=== PATIENT | female | born 1985 | race Caucasian/White ===

== ENCOUNTER → 2017-03-29 | Outpatient (CLI) | payer OTHER, SELFPAY | PROVIDERS: Family Provider Family Medicine; Visit Provider Family Medicine | DX: F50.9 Eating disorder, unspecified (principal); Z71.3 Dietary counseling and surveillance | CPT/HCPCS: 97803; G0108 ==

== ENCOUNTER → 2017-04-17 16:44 | Outpatient (CLI) | payer OTHER, SELFPAY ==
--- NOTE | 2017-04-17 | XR_ITS ---
EXAM: XR lumbar spine min 4V HISTORY: Low back pain ITS.REASON: LBP ORDERING PHYSICIAN: Zeke Mays MD PATIENT AGE: 31 years COMPARISON: None FINDINGS: Normal alignment. No fracture or dislocation. No lytic or blastic change. No significant degenerative change. The disc spaces are preserved. IMPRESSION: Negative lumbar spine
== END ==
PROVIDERS: PCP Family Medicine; Visit Provider Family Medicine
DX: M54.5 Low back pain (principal)
CPT/HCPCS: 72110

== ENCOUNTER → 2017-04-26 15:53 | Outpatient (CLI) | payer OTHER, SELFPAY ==
--- NOTE | 2017-04-26 17:03 | DIET.NUTRFU ---
F/U note. Pt reports she has felt much better this past month. I am in a better place. Review of her food logs and she is averaging 3 meals plus one snack a day. weight 120 lbs. Weight gain of 6 lbs in the past month. Pt expresses some concern about amount of weight gain. reassured pt this is normal for malnutrition. Pt continues to have some leg cramps and easy bruising. Her period was one week late this month. She continues to take a mvi supplement as recommended. Pt encouraged to continue current po intake and to continue to follow meal plan. Provided information on research trials for eating disorders happening at [facility]. Will f/u in one month.
== END ==
PROVIDERS: Family Provider Family Medicine; PCP Family Medicine; Visit Provider Family Medicine
DX: F50.9 Eating disorder, unspecified (principal); Z71.3 Dietary counseling and surveillance

== ENCOUNTER → 2017-05-24 15:57 | Outpatient (CLI) | payer OTHER, SELFPAY | PROVIDERS: Family Provider Family Medicine; PCP Family Medicine; Visit Provider Family Medicine | DX: F50.9 Eating disorder, unspecified (principal); Z71.3 Dietary counseling and surveillance | CPT/HCPCS: 97803; G0108 ==

== ENCOUNTER → 2017-06-09 15:20 | Outpatient (CLI) | payer OTHER, SELFPAY ==
[2017-06-12 13:38] LABS: Vitamin D 25 Hydroxy 33.9 ng/mL (30.0-100.0)
== END ==
PROVIDERS: PCP Family Medicine; Visit Provider Family Medicine
DX: E55.9 Vitamin D deficiency, unspecified (principal)
CPT/HCPCS: 36415; 82652

== ENCOUNTER → 2017-06-21 15:54 | Outpatient (CLI) | payer OTHER, SELFPAY | PROVIDERS: Family Provider Family Medicine; PCP Family Medicine; Visit Provider Family Medicine | DX: F50.9 Eating disorder, unspecified (principal); Z71.3 Dietary counseling and surveillance | CPT/HCPCS: 97803; G0108 ==

== ENCOUNTER → 2017-07-26 15:54 | Outpatient (CLI) | payer OTHER, SELFPAY | PROVIDERS: Family Provider Family Medicine; PCP Family Medicine; Visit Provider Family Medicine | DX: F50.9 Eating disorder, unspecified (principal); Z71.3 Dietary counseling and surveillance | CPT/HCPCS: 97803; G0108 ==

== ENCOUNTER 2017-08-04 16:00 | Outpatient (RCR) | payer OTHER, SELFPAY ==
--- NOTE | 2017-06-16 11:18 | HMH.PTOPEV ---
Rehab Outpatient Evaluation Rehab OP Evaluation Start: 06/15/17 17:21 Freq: Status: Active Protocol: Document 06/15/17 17:42 ELZA (Rec: 06/15/17 18:31 ELZA [id number]) Electronically Signed By Baljinder Flowers, PT 06/15/17 17:42 Outpatient Therapy Subjective History Subjective History Ms. Vitale is a 31 year old female who presents to outpatient PT with chronic LB pain and LLE radicular symptoms down to her foot, but her pain was more severe post 5k run 2016. PMH include labral surgery L hip, bilateral bunion surgery and R knee surgery. Pt. currently taking lexapro and melatonin with a history of anxiety/ depression and a eating disorder. Pt. reported X-ray with no significant changes. Pt. will benefit from skilled outpatient PT for BLE/lumbar strengthening and stretching, modalities, and pain controlling interventions. Chief Complaint Pain Paresthesia Symptom Type Ache Sharp Burning Tingling Shooting Symptoms Relieved By Rest/Positioning Heat Ice OTC Meds Symptoms Aggravated By Prone Sitting Standing Physical Activity Twisting Walking Prior Functional Limitations None Current Functional Limitations Driving Standing Sitting Recreation Activity Walking Symptom Description Intermittent Level of pain today (0-10) 2 Pain scale - at its best (0-10) 2 Pain scale - at its worst (0-10) 5 Lumbopelvic Eval Posture Thoracic Spine Posture Standing Position Neutral Lumbar Spine Posture Standing Position Neutral Assistive device Assistive Devices None / NA Gait Observation General Gait Pattern Observation No Deviations/Normal Palapation tenderness left thoracic spinal
== END 2017-08-04 16:01 | disposition home or self-care (01) ==
LOC: PT 16:00
PROVIDERS: Family Provider Family Medicine; PCP Family Medicine; Visit Provider Family Medicine
DX: M54.5 Low back pain (principal)
CPT/HCPCS: 97010; 97012; 97014; 97033; 97035; 97110; 97140; 97164; G0283

== ENCOUNTER → 2017-08-23 15:55 | Outpatient (CLI) | payer OTHER, SELFPAY | PROVIDERS: Family Provider Family Medicine; PCP Family Medicine; Visit Provider Family Medicine | DX: F50.9 Eating disorder, unspecified (principal); Z71.3 Dietary counseling and surveillance | CPT/HCPCS: 97803; G0108 ==

== ENCOUNTER 2017-09-06 16:30 | Outpatient (RCR) | payer OTHER, SELFPAY | END 2017-09-06 16:31 | disposition home or self-care (01) | LOC: PT 16:30 | PROVIDERS: Visit Provider Family Medicine | DX: M53.82 Other specified dorsopathies, cervical region (principal); M62.838 Other muscle spasm | CPT/HCPCS: 97010; 97014; 97035; 97110; 97140; 97163; G0283 ==

== ENCOUNTER → 2017-09-27 14:49 | Outpatient (CLI) | payer OTHER, SELFPAY ==
--- NOTE | 2017-09-27 15:37 | DIET.NUTRFU ---
One month f/u. New weight 119 lbs, down 4.6 lbs since last visit. Patient states it has been a good month by my standards, probably not by your standards . Food log indicates she is consuming 2 meals a day plus one snack. Pt states she gets hungry but ignores the hunger cues. She states that she thinks about food about the same as everyone else . 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 Patient states the social activity helps with loneliness and isolation. Total weight loss has been 7 lbs in two months. Pt states that seeing her weight number on the scale (126 lbs) is what triggered her relapse. Plan: Reinforced to patient she is to eat 3 meals a day plus snacks as desired. Pt is to put scales away, to put full length mirror away. Discussed visualizing what weight gain will look like, how to accept weight gain as part of recovery. Supportive articles provided. Patient states that seeing the dietitian provides motivation to continue to fight the eating disorder. Patient states that she wants to go home and throw her scales away. F/u in one month. Patient contacts dietitian sooner as needed.
== END ==
PROVIDERS: Family Provider Family Medicine; PCP Family Medicine; Visit Provider Family Medicine
DX: F50.9 Eating disorder, unspecified (principal); Z71.3 Dietary counseling and surveillance
CPT/HCPCS: 97803; G0108

== ENCOUNTER → 2017-10-25 15:59 | Outpatient (CLI) | payer OTHER, SELFPAY | PROVIDERS: Family Provider Family Medicine; PCP Family Medicine; Visit Provider Family Medicine | DX: Z71.3 Dietary counseling and surveillance (principal); F50.9 Eating disorder, unspecified | CPT/HCPCS: 97803; G0108 ==

== ENCOUNTER → 2017-11-24 14:24 | Outpatient (CLI) | payer OTHER, SELFPAY | PROVIDERS: Family Provider Family Medicine; PCP Family Medicine; Visit Provider Family Medicine | DX: Z71.3 Dietary counseling and surveillance (principal); F50.9 Eating disorder, unspecified | CPT/HCPCS: 97803; G0108 ==

== ENCOUNTER → 2017-12-27 15:53 | Outpatient (CLI) | payer OTHER, SELFPAY | PROVIDERS: Family Provider Family Medicine; PCP Family Medicine; Visit Provider Family Medicine | DX: Z71.3 Dietary counseling and surveillance (principal) | CPT/HCPCS: 97803; G0108 ==

== ENCOUNTER → 2018-01-04 16:30 | Outpatient (CLI) | payer OTHER, SELFPAY | PROVIDERS: PCP Family Medicine; Visit Provider Family Medicine | DX: E55.9 Vitamin D deficiency, unspecified (principal) | CPT/HCPCS: 36415; 82652 ==

== ENCOUNTER → 2018-01-10 07:36 | Outpatient (CLI) | payer OTHER, SELFPAY ==
[2018-01-10 07:59] LABS: Basophils % 0.9 % (0.1-2.0); Eosinophils # 0.1 K/mm3 (0.0-0.4); Eosinophils % 1.6 % (0.1-12.0); Hematocrit 40.7 % (37.0-47.0); Hemoglobin 13.4 g/dL (12.2-16.2); Lymphocytes # 2.1 K/mm3 (0.7-4.5); Lymphocytes % 53.1 K/mm3 (10-50); Mean Corpuscular HGB Conc 32.9 g/dL (31.8-35.4); Mean Corpuscular Hemoglobin 29.3 pg (27.0-31.2); Mean Corpuscular Volume 89.1 fl (81-99); Mean Platelet Volume 7.8 fl (7.4-10.4); Monocytes # 0.3 K/mm3 (0.1-1.0); Monocytes % 7.3 % (1.7-9.3); Neutrophils # 1.5 K/mm3 (1.8-7.8); Neutrophils % 37.2 % (37.0-80.0); Platelet Count 197 K/mm3 (142-424); Red Blood Count 4.57 M/mm3 (4.20-5.40); Red Cell Distribution Width 13.3 % (11.5-17.5)
[2018-01-10 09:14] LABS: MANUAL DIFFERENTIAL MANUAL DIFFERENTIAL (MANUAL DIFF)
[2018-01-10 09:47] LABS: Alanine Aminotransferase 20 U/L (12-78); Albumin Level 3.9 gm/dL (3.4-5.0); Albumin/Globulin Ratio 1.1 (1.1-1.8); Alkaline Phosphatase 45 U/L (46-116); Anion Gap 11.5 mEq/L (5-15); Aspartate Amino Transferase 16 U/L (15-37); Bilirubin,Total 1.2 mg/dL (0.2-1.0); Blood Urea Nitrogen 16 mg/dL (7-18); Calcium 8.7 mg/dL (8.5-10.1); Carbon Dioxide 27 mmol/L (21.0-32.0); Chloride 104 mmol/L (98-107); Creatinine,Serum 0.85 mg/dL (0.55-1.02); Estimated Glomerular Filt Rate 77 ml/min (>60); GFR (African American) 93 ML/MIN (>60); Globulin 3.4 gm/dl (1.3-3.2); Glucose 94 mg/dL (74-106); Magnesium 1.9 mg/dL (1.4-2.2); Phosphorous 3.2 mg/dL (2.4-4.9); Potassium 3.5 mmoL/L (3.5-5.1); Sodium 139 mmol/L (136-145); Thyroid Stimulating Hormone 3.21 uIU/ml (0.358-3.740); Total Protein,Serum 7.3 gm/dL (6.4-8.2)
[2018-01-10 10:50] LABS: Eosinophils % 1 % (0-3); Lymphocytes % 43 % (10-50); Monocytes % 8 % (2-9); Neutrophils % 45 % (42-76); Total Cells Counted 100
[2018-01-10 10:51] LABS: Platelet Estimate Normal; RBC Morphology Normal
[2018-01-11 09:34] LABS: Vitamin B12 399 pg/mL (232-1245)
== END ==
PROVIDERS: PCP Family Medicine; Visit Provider Family Medicine
DX: R53.83 Other fatigue (principal)
CPT/HCPCS: 36415; 80053; 82607; 82746; 83735; 84100; 84443; 85007; 85025

== ENCOUNTER → 2018-01-31 15:54 | Outpatient (CLI) | payer OTHER, SELFPAY | PROVIDERS: PCP Family Medicine; Visit Provider Family Medicine | DX: Z71.3 Dietary counseling and surveillance (principal) | CPT/HCPCS: 97803 ==

== ENCOUNTER → 2018-02-28 15:52 | Outpatient (CLI) | payer OTHER, SELFPAY | PROVIDERS: PCP Family Medicine; Visit Provider Family Medicine | DX: Z71.3 Dietary counseling and surveillance (principal); F50.9 Eating disorder, unspecified | CPT/HCPCS: 97803 ==

== ENCOUNTER → 2018-03-28 15:55 | Outpatient (CLI) | payer OTHER, SELFPAY | PROVIDERS: PCP Family Medicine; Visit Provider Family Medicine | DX: Z71.3 Dietary counseling and surveillance (principal) | CPT/HCPCS: 97803 ==

== ENCOUNTER → 2018-06-06 16:02 | Outpatient (CLI) | payer OTHER, SELFPAY | PROVIDERS: PCP Family Medicine; Visit Provider Family Medicine | DX: Z71.3 Dietary counseling and surveillance (principal); F50.9 Eating disorder, unspecified | CPT/HCPCS: 97803 ==

== ENCOUNTER → 2018-08-10 15:36 | Outpatient (CLI) | payer OTHER, SELFPAY ==
[2018-08-10 18:16] LABS: Free T4 (Free Thyroxine) 0.84 ng/dl (0.76-1.46)
== END ==
PROVIDERS: Visit Provider Family Medicine
DX: R79.89 Other specified abnormal findings of blood chemistry (principal)
CPT/HCPCS: 36415; 84439

== ENCOUNTER → 2018-09-10 07:06 | Outpatient (CLI) | payer OTHER, SELFPAY ==
--- NOTE | 2018-09-10 07:11 | XR_ITS ---
XR ankle wt bearing LT min 3V HISTORY: ITS.REASON: left ankle pain ORDERING PHYSICIAN: Holley Clements DPM PATIENT AGE: 33 years Comparison: None FINDINGS: There is mild soft tissue swelling at the lateral malleoli region. No fracture, dislocation, lytic, or blastic change or significant degenerative change is evident. IMPRESSION: Soft tissue swelling laterally otherwise negative
== END ==
PROVIDERS: PCP Family Medicine; Visit Provider Podiatrist
DX: M25.572 Pain in left ankle and joints of left foot (principal)
CPT/HCPCS: 73610

== ENCOUNTER → 2018-09-20 14:20 | Outpatient (CLI) | payer OTHER, SELFPAY ==
--- NOTE | 2018-09-20 14:25 | CT_ITS ---
CT ankle LT wo con INDICATION: Pain and bruising and swelling following injury ITS.REASON: Pain, bruising, and swelling. ORDERING PHYSICIAN: Holley Clements DPM PATIENT AGE: 33 years COMPARISON: None TECHNIQUE: Axial images are obtained without contrast. Sagittal and coronal reformatted images are reviewed as well. All CT scans at the facility use one or more dose reduction, viz: automated exposure control, ma/kV adjustment per patient size (including targeted exams where dose is matched to indication, i.e. head), or iterative reconstruction technique. FINDINGS: The medial and lateral malleolus and talar dome have an unremarkable appearance. The the calcaneus, navicular, and cuneiforms and cuboid are unremarkable. There is a well-circumscribed lucency which is irregular in nature with corticated margins involving the posterior aspect of the talus ( an elongated lateral tubercle of the posterior process of the talus) . 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 The margins of the bony fragment are not smooth as one would expect for an os trigonum. There is soft tissue swelling about the ankle. The tibial fibular joint space does not appear widened. IMPRESSION: 1. 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 2. Diffuse soft tissue swelling about the ankle both medially and laterally and anteriorly
== END ==
PROVIDERS: PCP Family Medicine; Visit Provider Podiatrist
DX: S82.892A Other fracture of left lower leg, initial encounter for closed fracture (principal)
CPT/HCPCS: 73700

== ENCOUNTER → 2018-10-01 07:15 | Outpatient (CLI) | payer OTHER, SELFPAY ==
--- NOTE | 2018-10-01 07:18 | XR_ITS ---
XR ankle wt bearing LT min 3V HISTORY: ITS.REASON: fracture follow up ORDERING PHYSICIAN: Holley Clements DPM PATIENT AGE: 33 years Comparison: None FINDINGS: No fracture or dislocation. No lytic or blastic change. There is normal mineralization.. The joint spaces are well-preserved. No significant degenerative/arthritic changes. No erosive changes evident. IMPRESSION: Negative ankle, no acute finding
== END ==
PROVIDERS: PCP Family Medicine; Visit Provider Podiatrist
DX: S82.892A Other fracture of left lower leg, initial encounter for closed fracture (principal)
CPT/HCPCS: 73610

== ENCOUNTER → 2018-10-22 07:12 | Outpatient (CLI) | payer OTHER, SELFPAY ==
--- NOTE | 2018-10-22 07:15 | XR_ITS ---
XR ankle wt bearing LT min 3V HISTORY: Pain, follow-up fracture ITS.REASON: fracture follow up ORDERING PHYSICIAN: Holley Clements DPM PATIENT AGE: 33 years Comparison: 10/01/2018 FINDINGS: There does appear to be an old ununited abebe's fracture not well delineated by plain film better demonstrated on the CT scan of 09/20/2018. No acute fracture or dislocation. IMPRESSION: No change with no acute finding Suspect old ununited abebe's fracture at the posterior talus. Please correlate with clinical findings
== END ==
PROVIDERS: PCP Family Medicine; Visit Provider Podiatrist
DX: S82.892A Other fracture of left lower leg, initial encounter for closed fracture (principal)
CPT/HCPCS: 73610

== ENCOUNTER 2018-11-29 17:30 | Outpatient (RCR) | payer OTHER, SELFPAY ==
--- NOTE | 2018-10-24 17:31 | HMH.PTOPEV ---
PT Outpatient Evaluation Rehab PT Outpatient Evaluation Start: 10/24/18 17:17 Freq: Status: Active Protocol: Document 10/24/18 17:17 ELZA (Rec: 10/24/18 17:31 ELZA [id number]) Electronically Signed By Baljinder Flowers, PT 10/24/18 17:17 Outpatient Therapy Subjective History Subjective History Patient is a 33 year old female presenting to outpatient PT with reports of L foot/ankle pain S/P L Shepherds fracture on 09/09/18 ( 6w 3d). Fracturer was non- displaced. Most recent diagnostics indicate good bone growth at fracture site. Pt ambulates into clinic with tall CAM walker and below the knee compression stocking. Pt reports MD cleared her to walk out of boot at home, but in boot at work. Initial injury occured while playing flag football. Pt initially had some severe swelling and ecchymosis. She has previously been treated by [facility] which has provided some significant relief of swelling /symptoms. Comorbidities include hx of lumbar and cervical spine pain, as well as L hip labral repair. Chief Complaint Pain,Stiff,Swelling,Weakness Symptom Type Ache,Sharp Symptoms Relieved By Rest/Positioning,OTC Meds Symptoms Aggravated By Standing,Physical Activity, Walking Prior Functional Limitations None Current Functional Limitations Lifting,Housework,Standing, Squatting,Recreation Activity, Walking,Stairs,Balance Symptom Description Intermittent Level of pain today (0-10) 0 Pain scale - at its best (0-10) 0 Pain scale - at its worst (0-10) 3 Ankle/Foot Eval Gait Observation General Gait Pattern Observation Decrease Weight Bear (L) Palpation Tenderness left Ankle/Foot Palpation Overall Comment 2/4 ATF TTP positive ROM right Ankle/Foot Dorsiflexion w/Knee Extended 10 Active Range Motion (degrees) Ankle/Foot Plantar Flexion Active Range 60 of Motion (degrees) Ankle/Foot Eversion Active Range of 25 Motion (degrees) Ankle/Foot Inversion Active Range of
== END 2018-11-29 17:35 | disposition home or self-care (01) ==
LOC: PT 17:30
PROVIDERS: Visit Provider Podiatrist
DX: S82.899A Other fracture of unspecified lower leg, initial encounter for closed fracture (principal)
CPT/HCPCS: 97010; 97014; 97016; 97033; 97110; 97112; 97140; 97163; G0283

== ENCOUNTER → 2018-12-13 07:17 | Outpatient (CLI) | payer OTHER, SELFPAY ==
--- NOTE | 2018-12-13 07:20 | XR_ITS ---
PROCEDURE: XR FOOT WT BEARING LT 3V CLINICAL INDICATION: foot pain COMPARISON: HANDL3 HAND-LT-3 VIEWS from 04/09/2015 from 09/10/[address] ankle LT wo con from 09/20/2018 FINDINGS: There is a bony defect involving the distal aspect of the 1st metatarsal medially suggesting prior bunionectomy. Please correlate with surgical history. No acute fracture or dislocation is evident. CT scan suggested an old ununited abebe's fracture of prominent posterior talar process. This is below limits of resolution on this image. IMPRESSION: Prior bunionectomy of the 1st metatarsal Dictated by: Aleksandar Vale MD 12/13/2018 11:41 Electronically signed by Aleksandar Vale MD in [place] 12/13/2018 11:41
== END ==
PROVIDERS: PCP Family Medicine; Visit Provider Podiatrist
DX: M79.672 Pain in left foot (principal)
CPT/HCPCS: 73630

== ENCOUNTER → 2019-02-26 17:50 | Outpatient (CLI) | payer OTHER, SELFPAY ==
--- NOTE | 2019-02-26 17:54 | XR_ITS ---
PROCEDURE: XR FOOT WT BEARING LT 3V CLINICAL INDICATION: pain Pain COMPARISON: XR FOOT WT BEARING LT 3V from 12/13/2018 FINDINGS: No acute fracture or dislocation. There is a well-circumscribed defect involving the distal and medial aspect of the 1st metatarsal and may represent a site of prior bunionectomy. Please correlate with patient's history. Study is otherwise unremarkable. Other findings:None. IMPRESSION: Suspect prior bunionectomy at the distal aspect of the 1st metatarsal. No change with no acute finding Dictated by: Aleksandar Vale MD 02/26/2019 18:57 Electronically signed by Aleksandar Vale MD in [place] 02/26/2019 18:57
--- NOTE | 2019-02-26 17:54 | XR_ITS ---
PROCEDURE: XR CALCANEUS LT MIN 2V CLINICAL INDICATION: pain COMPARISON: No exams were available for comparison FINDINGS: No fracture or dislocation. No lytic or blastic change. There is normal mineralization. The joint spaces are well-preserved. No significant degenerative/arthritic changes. No erosive changes evident. Other findings:Kager's fat pad is preserved. No obvious Lina deformity IMPRESSION: Negative left calcaneus Dictated by: Aleksandar Vale MD 02/26/2019 18:56 Electronically signed by Aleksandar Vale MD in [place] 02/26/2019 18:56
== END ==
PROVIDERS: PCP Family Medicine; Visit Provider Podiatrist
DX: M79.672 Pain in left foot (principal)
CPT/HCPCS: 73630; 73650

== ENCOUNTER → 2019-03-06 14:22 | Outpatient (CLI) | payer OTHER, SELFPAY ==
--- NOTE | 2019-03-06 14:24 | MR_ITS ---
PROCEDURE: MR ANKLE LT WO/W CON CLINICAL INDICATION: Peroneal Tendon Pain Posterior ankle pain, prior fracture, lateral ankle pain COMPARISON: ANKLTWO CT ankle LT wo con from 09/20/2018 TECHNIQUE: Routine multiplanar multi echo sequences are performed without and with gadolinium enhancement. FINDINGS: There is a prominent posterior talar process with some minor signal alteration at this region which could be due to an old healed fracture. No acute fracture is evident. Small amount of fluid is present posteriorly at the talocalcaneal in tibial talar region. The peroneal tendons have an unremarkable appearance. The tibiofibular ligaments are unremarkable. The anterior talofibular ligament is thin and with some increased T2 signal at this region consistent with sprain or partial tear of the ATFL. The PT FL is intact. The deltoid ligament has an unremarkable appearance. There prominence of the posterior talar process. This however projects slightly lateral but does not appear to impinge upon the peroneal tendon. Posterior talar process does abut the lateral aspect of the flexor hallucis longus with slight increased T2 signal at this region. The Achilles tendon has an unremarkable appearance. Posterior tibialis and flexor digitorum longus as well as the extensor tendons are unremarkable IMPRESSION: 1. Small ankle joint effusion. 2. Partial tear versus sprain of the ATFL. 3. Prominent posterior talar process with questionable old fracture without impingement upon the peroneal tendon. There is some signal alteration of the flexor hallucis longus at the talus which could be due to some mild tendinopathy/tendinosis. Dictated by: Aleksandar Vale MD 03/07/2019 08:52 Electronically signed by Aleksandar Vale MD in [place] 03/11/2019 15:15
== END ==
PROVIDERS: PCP Family Medicine; Visit Provider Podiatrist
DX: S92.102A Unspecified fracture of left talus, initial encounter for closed fracture (principal)
CPT/HCPCS: 73723; A9576

== ENCOUNTER → 2019-03-28 16:51 | Outpatient (CLI) | payer OTHER, SELFPAY ==
[2019-03-28 17:10] LABS: Basophils % 0.7 % (0.1-2.0); Eosinophils # 0.1 K/mm3 (0.0-0.4); Eosinophils % 1.8 % (0.1-12.0); Hematocrit 39.2 % (37.0-47.0); Hemoglobin 13.7 g/dL (12.2-16.2); Lymphocytes # 2.5 K/mm3 (0.7-4.5); Lymphocytes % 45.5 % (10-50); Mean Corpuscular HGB Conc 34.9 g/dL (31.8-35.4); Mean Corpuscular Hemoglobin 30.9 pg (27.0-31.2); Mean Corpuscular Volume 88.4 fl (81-99); Mean Platelet Volume 7.7 fl (7.4-10.4); Monocytes # 0.3 K/mm3 (0.1-1.0); Monocytes % 5.5 % (1.7-9.3); Neutrophils # 2.5 K/mm3 (1.8-7.8); Neutrophils % 46.5 % (37.0-80.0); Platelet Count 268 K/mm3 (142-424); Red Blood Count 4.43 M/mm3 (4.20-5.40); Red Cell Distribution Width 12.8 % (11.5-17.5); White Blood Count 5.5 K/mm3 (4.8-10.8)
--- NOTE | 2019-03-28 17:15 | ECG_ITS ---
APPROVED REPORT Exam: Resting ECG HR:59 bpm ECG Measurements Heart Rate 59 AXES AK 180 P 5 QRSd 80 QRS 89 QT 410 T 65 QTc 405 <Conclusion> Sinus bradycardia Septal infarct, age undetermined Abnormal ECG Electronically signed by : Gonsalo Anderson, 03/29/2019 07:22:24
[2019-03-28 18:32] LABS: HCG Qualitative, Serum Negative (Negative)
[2019-03-28 19:13] LABS: Alanine Aminotransferase 28 U/L (12-78); Albumin Level 3.9 gm/dL (3.4-5.0); Albumin/Globulin Ratio 1.2 (1.1-1.8); Alkaline Phosphatase 44 U/L (46-116); Anion Gap 14.6 mEq/L (5-15); Aspartate Amino Transferase 18 U/L (15-37); Bilirubin,Total 0.3 mg/dL (0.2-1.0); Blood Urea Nitrogen 16 mg/dL (7-18); Calcium 8.6 mg/dL (8.5-10.1); Carbon Dioxide 29 mmol/L (21.0-32.0); Chloride 100 mmol/L (98-107); Creatinine,Serum 0.85 mg/dL (0.55-1.02); Estimated Glomerular Filt Rate 76 ml/min (>60); GFR (African American) 92 ML/MIN (>60); Globulin 3.3 gm/dl (1.3-3.2); Glucose 89 mg/dL (74-106); Potassium 3.6 mmoL/L (3.5-5.1); Sodium 140 mmol/L (136-145); Total Protein,Serum 7.2 gm/dL (6.4-8.2)
== END ==
PROVIDERS: PCP Family Medicine; Visit Provider Podiatrist
DX: Z01.818 Encounter for other preprocedural examination (principal); M25.872 Other specified joint disorders, left ankle and foot
CPT/HCPCS: 36415; 80053; 82652; 84703; 85025; 93005

== ENCOUNTER 2019-06-21 14:00 | Outpatient (RCR) | payer OTHER, SELFPAY ==
--- NOTE | 2019-05-22 09:25 | HMH.PTOPEV ---
PT Outpatient Evaluation Rehab PT Outpatient Evaluation Start: 05/22/19 08:32 Freq: Status: Active Protocol: Document 05/22/19 08:32 OFELIA (Rec: 05/22/19 09:25 OFELIA [id number]) Electronically Signed By Ole Chandler, PT 05/22/19 08:32 Outpatient Therapy Subjective History Subjective History Pt presents s/p L ankle Blanchard's fracture fragment excision, peroneal tendon repairs, FHL tendon repair, synovectomy on 04/12/19. Pt reports initial injury/sprain/ fx occurred while playing [employer] football in 2019. Pt reports 'tightness, and some soreness' since sx., however, 'it doesn 't really hurt which is good'. PMH: L bunionectomy Chief Complaint Pain,Stiff,Swelling, Paresthesia,Weakness Symptom Type Ache,Dull,Numbness Symptoms Relieved By Rest/Positioning,Ice Symptoms Aggravated By Standing,Physical Activity, Walking Prior Functional Limitations Standing,Walking Current Functional Limitations Standing,Walking,Stairs Symptom Description Intermittent Level of pain today (0-10) 0 Pain scale - at its best (0-10) 0 Pain scale - at its worst (0-10) 2 Ankle/Foot Eval Gait Observation General Gait Pattern Observation Antalgic Gait,Decrease Weight Bear (L) Palpation Tenderness left Ankle/Foot Palpation Findings Tenderness Ankle/Foot Palpation Overall Comment 2/4-sx. incision, peroneus brevis mm belly, post. tib mm belly ROM Ankle/Foot Dorsiflexion w/Knee Extended 0 Active Range Motion (degrees) Ankle/Foot Dorsiflexion w/Knee Extended 0-5 Passive Range (degrees) Ankle/Foot Plantar Flexion Active Range 0-40 of Motion (degrees) Ankle/Foot Plantar Flexion Passive Range 0-45 of Motion (degrees) Ankle/Foot Eversion Active Range of 0-10 Motion (degrees) Ankle/Foot Eversion Passive Range of 0-15 Motion (degrees) Ankle/Foot Inversion Active Range of 0-10 Motion (degrees) Ankle/Foot Inversion Passive Range of 0-12 Motion (degrees) Ankle/Foot ROM Limitations Soft Tissue Tightness, Contracture Great Toe Metatarsophalangeal Extension 0-30 Passive Range Motion (degrees) Great Toe Metatarsophalangeal Passive 0-35 Flexion Range Motion (degrees) Great Toe ROM Limitations Soft Tissue Tightness MMT Ankle Dorsif
--- NOTE | 2019-06-21 14:31 | HMH.RHREAS ---
Rehab Reassessment Rehab OP Re-assessment Start: 06/21/19 13:34 Freq: Status: Active Protocol: Document 06/21/19 13:34 OFELIA (Rec: 06/21/19 14:31 [email or web address] [id number]) Electronically Signed By Ole Chandler, PT 06/21/19 13:34 Rehab Re-assessment Subjective Subjective Pt reports 4/10 L ankle pain on VAS, 'it's sore today, been running errands all day'. Pt reports L ankle feels ~24% better since I Eval Objective Objective Notes AROM: L ANKLE DF 0, PF 0-45, INV 0-10, EVR 0-23 MMT: L ANKLE DF 4+/5, PF 4+/5, INV 4+/5, EVR 4/5 FIG 8: 54.5CM L TTP: PERONEALS LEFT -05/14 Assessment Progress Assessment Slower Than Expected Assessment Notes PT W/IMPROVED STRENGTH, TTP, AND EDEMA Patient goals met STG'S 06/15 Goals Not Met STG'S 08/15, LTG'S 12/17 Plan Plan PT TO CONTINUE W/SKILLED P.T. TO MAKE FURTHER IMPROVEMENTS IN AROM, STRENGTH, AND TTP TO ALLOW FOR OPTIMAL FUNCTION Frequency of Therapy 2-3X/WKS Duration of therapy 6-8 WKS Time and Billing Re-Eval Time 15 Re-Eval Billing Units 1 PHYSICIAN CERTIFICATION: I certify the specified therapy services for [facility] are required, authorized, and reviewed every 30 days.
== END 2019-06-21 15:10 | disposition home or self-care (01) ==
LOC: PT 14:00
PROVIDERS: PCP Family Medicine; Visit Provider Podiatrist
DX: M25.872 Other specified joint disorders, left ankle and foot (principal); M77.52 Other enthesopathy of left foot and ankle; S86.312A Strain of muscle(s) and tendon(s) of peroneal muscle group at lower leg level, left leg, initial encounter; S92.132A Displaced fracture of posterior process of left talus, initial encounter for closed fracture
CPT/HCPCS: 97010; 97014; 97016; 97110; 97112; 97140; 97163; 97164; G0283

== ENCOUNTER → 2019-06-25 12:12 | Outpatient (CLI) | payer OTHER, SELFPAY ==
--- NOTE | 2019-06-25 12:16 | XR_ITS ---
PROCEDURE: XR ANKLE WT BEARING LT MIN 3V CLINICAL INDICATION: Post-op Pain following surgery COMPARISON: XR ANKLE LT 2V from 04/12/2019 XR ANKLE LT MIN 3V from 04/12/2019 XR FOOT WT BEARING LT 3V from 06/25/2019 FINDINGS: Status post osteotomy of prominent posterior talar process. The splint has been removed. There is good alignment. No bony erosive process evident. IMPRESSION: Status post osteotomy of prominent posterior talar process otherwise negative Dictated by: Aleksandar Vale MD 06/25/2019 12:44 Electronically signed by Aleksandar Vale MD in [place] 06/25/2019 12:44
--- NOTE | 2019-06-25 12:16 | XR_ITS ---
PROCEDURE: XR FOOT WT BEARING LT 3V CLINICAL INDICATION: postop pain COMPARISON: Postop pain FINDINGS: Postsurgical changes are present involving the distal aspect of the 1st metatarsal with apparent bunionectomy. There is good alignment. No fracture or dislocation. No bony erosive process. The joint spaces are well-preserved. No significant degenerative/arthritic changes. No erosive changes evident. Other findings:None. IMPRESSION: Postsurgical change with no acute finding Dictated by: Aleksandar Vale MD 06/25/2019 12:45 Electronically signed by Aleksandar Vale MD in [place] 06/25/2019 12:45
== END ==
PROVIDERS: PCP Family Medicine; Visit Provider Podiatrist
DX: Z98.890 Other specified postprocedural states (principal); S92.1 Fracture of talus
CPT/HCPCS: 73610; 73630

== ENCOUNTER → 2019-06-28 09:59 | Outpatient (CLI) | payer OTHER, SELFPAY ==
--- NOTE | 2019-06-28 09:59 | MR_ITS ---
PROCEDURE: MR ANKLE LT WO/W CON CLINICAL INDICATION: evaluate for Post. Tib Tendon Tear Medial ankle pain and instability, prior surgery, posterior tibial tendonitis COMPARISON: MR ANKLE LT WO/W CON from 03/06/2019 TECHNIQUE: Routine multiplanar multi echo sequences are performed without and with gadolinium enhancement. FINDINGS: No fracture or dislocation. There is thickening of the anterior tibiofibular ligament which may represent post surgical changes. Moderate amount of soft tissue edema with enhancement is present along the posterior aspect of the ankle joint centrally and laterally. There is a nondisplaced split tear of the peroneus longus tendon at the retro malleolar groove 2 cm proximal to the tip of the fibula. The peroneus longus and brevis tendons have an unremarkable appearance. Fibers of the deltoid ligament are sparse with increased T2 signal consistent with sprain versus partial tear. There may be tear of the posterior tibiotalar ligament. There has been prior osteotomy of the popping it posterior talar process. 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 There is a small ankle joint effusion anteriorly IMPRESSION: 1. Nondisplaced split tear of the peroneus longus tendon 2. Postsurgical changes from prior osteotomy of prominent posterior talar process with moderate amount of edema within the soft tissues posterior laterally. 3. Abnormal appearance of the deltoid ligament with increased T2 signal in sparsely of the fibers consistent with sprain/tear. The posterior tibiotalar ligament is not identified as before consistent with a tear Dictated by: Aleksandar Vale MD 07/01/2019 11:56 Electronically signed by Aleksandar Vale MD in [place] 07/01/2019 11:56
== END ==
PROVIDERS: PCP Family Medicine; Visit Provider Podiatrist
DX: M76.822 Posterior tibial tendinitis, left leg (principal)
CPT/HCPCS: 73723; A9576

== ENCOUNTER → 2019-07-23 14:51 | Outpatient (CLI) | payer OTHER, SELFPAY ==
[2019-07-23 15:59] LABS: Erythrocyte Sedimentation Rate 11 mm/hr (0-20)
[2019-07-23 16:39] LABS: Uric Acid 3.8 mg/dl (2.5-6.2)
[2019-07-23 16:45] LABS: C-Reactive Protein 0.7 mg/L (0-4)
[2019-07-23 17:12] LABS: Thyroid Stimulating Hormone 5.77 uIU/mL (0.465-4.68)
[2019-07-25 07:16] LABS: Folate 10.1 ng/mL (>3.0); RA Latex Turbid. <10.0 IU/mL (0.0-13.9); Vitamin B12 310 pg/mL (232-1245)
[2019-07-25 18:44] LABS: Antinuclear Antibodies, IFA Negative (.)
[2019-07-26 11:26] LABS: Anti-Cyclic Citrullinated Pept 8 units (0-19)
== END ==
PROVIDERS: Visit Provider Podiatrist
DX: M25.572 Pain in left ankle and joints of left foot (principal); Z98.890 Other specified postprocedural states
CPT/HCPCS: 36415; 82607; 82746; 84443; 84550; 85651; 86038; 86140; 86200; 86431

== ENCOUNTER → 2019-07-26 11:40 | Outpatient (CLI) | payer OTHER, SELFPAY ==
[2019-07-26 15:39] LABS: Free T4 (Free Thyroxine) 0.66 ng/dl (0.78-2.19)
[2019-07-27 09:15] LABS: Thyroid Peroxidase Antibodies 26 IU/mL (0-34)
[2019-07-29 12:47] LABS: Thyroglobulin Level 113.9 IU/mL (0.0-0.9)
[2019-07-30 06:57] LABS: Thyroid Stimulating Immunoglob <0.10 IU/L (0.00-0.55)
== END ==
PROVIDERS: Visit Provider Family Medicine
DX: E03.9 Hypothyroidism, unspecified (principal)
CPT/HCPCS: 36415; 84439; 84445; 86376; 86800

== ENCOUNTER 2019-09-13 10:00 | Outpatient (RCR) | payer OTHER, SELFPAY ==
--- NOTE | 2019-08-23 14:54 | HMH.PTOPEV ---
PT Outpatient Evaluation Rehab PT Outpatient Evaluation Start: 08/23/19 14:08 Freq: Status: Active Protocol: Document 08/23/19 14:09 OFELIA (Rec: 08/23/19 14:54 OFELIA [id number]) Electronically Signed By Ole Chandler, PT 08/23/19 14:09 Outpatient Therapy Subjective History Subjective History Pt reports h/o chronic L ankle /foot pain since initial injury (peroneal tendon tears, abebe's fx L) on 09/10/18, sx. on 04/12/19. Pt reports deltiod L lig injury ~30-45 days ago, 'is better', only currently reporting mild lateral aspect L foot pain, and L lateral STJ area pain which has improved since local injection on 08/20/19. Chief Complaint Pain,Stiff,Swelling Symptom Type Ache,Dull Symptoms Relieved By Rest/Positioning Symptoms Aggravated By Physical Activity Prior Functional Limitations Standing,Walking Current Functional Limitations Standing,Recreation Activity, Walking,Stairs Symptom Description Intermittent Level of pain today (0-10) 0 Pain scale - at its best (0-10) 0 Pain scale - at its worst (0-10) 5 Ankle/Foot Eval Gait Observation General Gait Pattern Observation No Deviations/Normal Assistive Device Ambulation Assistive Device None Palpation Tenderness left Ankle/Foot Palpation Overall Comment base of 5th met.head, lateral STJ area 1-2/4 ROM Ankle/Foot Dorsiflexion w/Knee Extended 0-10 Active Range Motion (degrees) Ankle/Foot Plantar Flexion Active Range 0-32 of Motion (degrees) Ankle/Foot Eversion Active Range of 0-20 Motion (degrees) Ankle/Foot Inversion Active Range of 0-15 Motion (degrees) Ankle/Foot ROM Limitations Soft Tissue Tightness MMT Ankle Dorsiflexion Strength Grade 5 Normal Ankle Plantarflexion Strength Grade 5 Normal Foot Eversion Strength Grade 5 Normal Foot Inversion Strength Grade 4 Good Special Tests Ankle Anterior Drawer Test Negative Left Ankle Eversion Test Negative Left Talar Tilt Test Negative Left Outpatient Therapy Assessment Impairments Problems/Impairmments Palpation Tenderness,Impaired Range of Motion,Impaired Strength,Impaired Gait Pattern ,Impaired Walking,Impaired Standing,Impaired Recreational Activities,Impaired Running,
== END 2019-09-13 10:05 | disposition home or self-care (01) ==
LOC: PT 10:00
PROVIDERS: PCP Family Medicine; Visit Provider Podiatrist
DX: M25.572 Pain in left ankle and joints of left foot (principal); M25.672 Stiffness of left ankle, not elsewhere classified; Z98.890 Other specified postprocedural states
CPT/HCPCS: 97010; 97014; 97016; 97033; 97110; 97163; G0283

== ENCOUNTER → 2019-09-27 15:10 | Outpatient (CLI) | payer OTHER, SELFPAY ==
[2019-09-27 16:35] LABS: Free T4 (Free Thyroxine) 1.07 ng/dl (0.78-2.19)
[2019-09-27 16:49] LABS: Thyroid Stimulating Hormone 1.52 uIU/mL (0.465-4.68)
== END ==
PROVIDERS: Visit Provider Family Medicine
DX: E03.9 Hypothyroidism, unspecified (principal)
CPT/HCPCS: 36415; 84439; 84443

== ENCOUNTER → 2019-10-01 12:27 | Outpatient (CLI) | payer OTHER, SELFPAY ==
--- NOTE | 2019-10-01 12:30 | XR_ITS ---
PROCEDURE: XR CERVICAL SPINE 5V CLINICAL INDICATION: neck pain COMPARISON: No exams were available for comparison FINDINGS: No fracture or dislocation. No lytic or blastic change. There is normal mineralization. The joint spaces are well-preserved. No significant degenerative/arthritic changes. No erosive changes evident. Other findings:None. IMPRESSION: No acute findings. Dictated by: Bernardo Fischer 10/01/2019 13:44 Electronically signed by Bernardo Fischer in [place] 10/01/2019 13:44
--- NOTE | 2019-10-01 12:30 | XR_ITS ---
PROCEDURE: XR THORACIC SPINE 2V CLINICAL INDICATION: neck pain COMPARISON: TSP THORACIC SPINE-3V SWIMMERS from 09/26/2013 FINDINGS: There is no acute fracture or dislocation. The joint spaces are intact. There is a remote fracture deformity of the left mid clavicle. IMPRESSION: Remote fracture deformity of the left midclavicle Dictated by: Bernardo Fischer 10/01/2019 13:45 Electronically signed by Bernardo Fischer in [place] 10/01/2019 13:45
== END ==
PROVIDERS: PCP Family Medicine; Visit Provider Orthopaedic Surgery
DX: M54.2 Cervicalgia (principal); M62.838 Other muscle spasm
CPT/HCPCS: 72050; 72070

== ENCOUNTER → 2019-11-19 07:58 | Outpatient (POV) | payer OTHER, SELFPAY | PROVIDERS: PCP Family Medicine; Visit Provider Dermatology | DX: Z00.00 Encounter for general adult medical examination without abnormal findings (principal) ==

== ENCOUNTER → 2019-12-04 14:18 | Outpatient (CLI) | payer OTHER, SELFPAY ==
--- NOTE | 2019-12-04 14:19 | MR_ITS ---
PROCEDURE: MR ANKLE LT WO/W CON CLINICAL INDICATION: chronic left ankle pain S/p fx of lt ankle with surgery Apr 2019. Pt reinjured left ankle June 2019 and continues to have pain. COMPARISON: MR MR ANKLE LT WO/W CON from 03/06/2019 TECHNIQUE: Routine multiplanar multi echo sequences are performed without gadolinium enhancement. FINDINGS: There is normal alignment. No bone marrow edema is evident. There is some increased T2 signal posterior to the posterior aspect of the talus which may be postsurgical changes. There is some heterogeneous signal intensity along the posterior aspect of the peroneal tendons at the retro malleolar groove which could be due to postsurgical changes. No evidence peroneal tendon tear. Tendinopathy/tendinosis would be included in the differential diagnosis. No evidence of posterior tibial tendon tear. The flexor digitorum longus and flexor hallucis longus tendons are unremarkable.. There is sparsely of the fibers of the deltoid ligament with slight increase in T2 signal suggesting sprain or partial tear. There are some fibers which are intact. There is also mild thickening of the ATFL which could be due to sprain or partial tear. This thickening has slightly improved. There is a small amount of fluid in the tibiofibular joint distally and along the anterior lateral aspect of the talus. The Achilles tendon an unremarkable appearance. IMPRESSION: 1. Suspect postsurgical changes at the peroneal tendon region and posterior to the talus. 2. Sparsely of the deltoid ligament fibers with some increase in signal which may be due to sprain or partial tear. 3. Small ankle joint effusion. 4. Suspect chronic partial tear or sprain of the ATFL Dictated by: Aleksandar Vale MD 12/05/2019 10:55 Aleksandar Vale MD in [place] 12/05/2019 10:55
== END ==
PROVIDERS: PCP Family Medicine; Visit Provider Podiatrist
DX: M25.572 Pain in left ankle and joints of left foot (principal); M76.822 Posterior tibial tendinitis, left leg; M25.872 Other specified joint disorders, left ankle and foot; Z98.890 Other specified postprocedural states
CPT/HCPCS: 73723; A9576

== ENCOUNTER → 2019-12-07 11:30 | Outpatient (CLI) | payer OTHER, SELFPAY ==
[2019-12-07 12:10] LABS: Basophils % 0.8 % (0.1-2.0); Eosinophils # 0.1 K/mm3 (0.0-0.4); Eosinophils % 2.6 % (0.1-12.0); Hematocrit 41.5 % (37.0-47.0); Hemoglobin 14.8 g/dL (12.2-16.2); Lymphocytes # 1.8 K/mm3 (0.7-4.5); Lymphocytes % 42.7 % (10-50); Mean Corpuscular HGB Conc 35.6 g/dL (31.8-35.4); Mean Corpuscular Hemoglobin 31.4 pg (27.0-31.2); Mean Corpuscular Volume 88.3 fl (81-99); Mean Platelet Volume 7.5 fl (7.4-10.4); Monocytes # 0.3 K/mm3 (0.1-1.0); Monocytes % 7.7 % (1.7-9.3); Neutrophils # 1.9 K/mm3 (1.8-7.8); Neutrophils % 46.2 % (37.0-80.0); Platelet Count 242 K/mm3 (142-424); Red Blood Count 4.71 M/mm3 (4.20-5.40); Red Cell Distribution Width 12.9 % (11.5-17.5); White Blood Count 4.1 K/mm3 (4.8-10.8)
[2019-12-07 13:04] LABS: Free T4 (Free Thyroxine) 1.18 ng/dl (0.78-2.19)
[2019-12-07 13:05] LABS: 25-OH Vitamin D, Total 41.5 ng/mL (30-100)
[2019-12-07 13:16] LABS: Ferritin 29.7 ng/ml (6.24-137)
== END ==
PROVIDERS: Visit Provider Physician Assistant
DX: E03.8 Other specified hypothyroidism (principal); E06.3 Autoimmune thyroiditis; R53.82 Chronic fatigue, unspecified; L65.9 Nonscarring hair loss, unspecified
CPT/HCPCS: 36415; 82306; 82728; 84439; 84443; 85025

== ENCOUNTER → 2020-01-15 07:32 | Outpatient (CLI) | payer OTHER, SELFPAY ==
--- NOTE | 2020-01-15 07:47 | ECG_ITS ---
APPROVED REPORT Exam: Resting ECG HR:79 bpm ECG Measurements Heart Rate 79 AXES WA 166 P 73 QRSd 76 QRS 87 QT 366 T 47 QTc 419 Conclusion Normal sinus rhythm Left atrial abnormality Borderline ECG Electronically signed by : Gonsalo Anderson, 01/17/2020 13:54:26
[2020-01-15 08:05] LABS: Basophils % 0.8 % (0.1-2.0); Eosinophils # 0.1 K/mm3 (0.0-0.4); Eosinophils % 2.4 % (0.1-12.0); Hematocrit 44.6 % (37.0-47.0); Hemoglobin 14.6 g/dL (12.2-16.2); Lymphocytes # 1.7 K/mm3 (0.7-4.5); Lymphocytes % 38.8 % (10-50); Mean Corpuscular HGB Conc 32.7 g/dL (31.8-35.4); Mean Corpuscular Hemoglobin 30.1 pg (27.0-31.2); Mean Corpuscular Volume 91.8 fl (81-99); Mean Platelet Volume 7.3 fl (7.4-10.4); Monocytes # 0.3 K/mm3 (0.1-1.0); Neutrophils # 2.3 K/mm3 (1.8-7.8); Neutrophils % 51.9 % (37.0-80.0); Platelet Count 227 K/mm3 (142-424); Red Blood Count 4.86 M/mm3 (4.20-5.40); Red Cell Distribution Width 12.5 % (11.5-17.5); White Blood Count 4.4 K/mm3 (4.8-10.8)
[2020-01-15 09:29] LABS: Chloride 104 mmol/L (98-107); Sodium 138 mmol/L (136-145)
[2020-01-15 09:30] LABS: Potassium 3.8 mmoL/L (3.5-5.1)
[2020-01-15 09:32] LABS: Alanine Aminotransferase 22 U/L (12-78); Albumin Level 4.2 g/dl (3.5-5.0); Albumin/Globulin Ratio 1.4 (1.1-1.8); Alkaline Phosphatase 38 U/L (38-126); Anion Gap 11.8 mEq/L (5-15); Aspartate Amino Transferase 31 U/L (14-36); Bilirubin,Total 0.6 mg/dl (0.2-1.3); Blood Urea Nitrogen 21 mg/dl (7-17); Carbon Dioxide 26 mmol/L (22.0-30.0); Estimated Glomerular Filt Rate 81 ml/min (>60); GFR (African American) 98 ML/MIN (>60); Total Protein,Serum 7.2 g/dl (6.3-8.2)
[2020-01-15 09:33] LABS: Calcium 9.6 mg/dl (8.4-10.2); Glucose 101 mg/dl (74-100)
[2020-01-15 10:29] LABS: HCG Qualitative, Serum Negative (Negative)
== END ==
PROVIDERS: PCP Family Medicine; Visit Provider Podiatrist
DX: Z01.818 Encounter for other preprocedural examination (principal); M25.372 Other instability, left ankle
CPT/HCPCS: 36415; 80053; 84703; 85025; 93005

== ENCOUNTER → 2020-02-05 07:35 | Outpatient (CLI) | payer OTHER, SELFPAY ==
[2020-02-05 09:10] LABS: HCG Qualitative, Serum Negative (Negative)
[2020-02-05 11:18] LABS: Coronavirus 19 IgG Antibody Negative (Negative); Coronavirus 19 IgM Antibody Negative (Negative)
== END ==
PROVIDERS: Visit Provider Podiatrist
DX: Z01.818 Encounter for other preprocedural examination (principal); M25.372 Other instability, left ankle
CPT/HCPCS: 36415; 84703; 86328

== ENCOUNTER 2020-02-07 06:04 | Day surgery (SDC) | payer OTHER, SELFPAY ==
[2020-02-04 12:51] VITALS: BMI 22.5
[2020-02-07] VITALS (20 sets, daily range): BP systolic 105–133; BP diastolic 60–79; PULSE 69–94; RESP 12–20; TEMP 36.4–43; O2SAT 92–97
--- NOTE | 2020-02-07 06:45 | P.PN_ITS ---
[facility] Anesthesia Checklist - Patient Identification Patient Identification: Arm Band, Verbal (Name & ) - Structural Data Admitted From: Home Planned Operative Procedure/s: Left ankle arthroscopy, arthrotomy, gastrocnemius recession Consent for Planned Operative Procedure(s) Verified: Yes Verified Documents: Surgical Consent, History and Physical - NPO Status Verified Time NPO: 22:00 - Chart Verification Results Verified: CBC, BMP, ECG, HCG - Additional verifications Patient : No Anesthesia Reactions: No Hx Blood Transfusions: No Blood Transfusion Reaction: No - Airway Assessment C-Spine Mobility Assessed: Yes (MP 1, TMD 3, full neck ROM) TMJ Mobility Assessed: Yes Dentition: Good Dentition - Neurological Assessment Level of Consciousness: Awake, Alert, Appropriate, Follows Commands Hx Seizures: No Numbness or tingling in extremities: No - Anesthesia Plan Anesthesia Risk discussed: Yes Anesthesia Plan: Verified ASA Class: II Anesthesia Type: General w/block [facility] History I have reviewed the patient's past medical history: Yes Medical History: Reports:: Anxiety, Asthma, Depression Denies:: Cancer, Diabetes Mellitus Type 1, Diabetes Mellitus Type 2, Internal Pacemaker, MRSA, Seizures *Have you ever received a pneumonia vaccine?: No *Have you received a flu vaccine this season?: Yes Other Medical History: Denies: Blood Transfusion Reaction Anesthesia experience/problems:: None Laterality Cases: Left: Arthroscopy Hip, Right: Arthroscopy Knee Other Surgeries: Yes: Other. No: Pacemaker Amputation: No Fractures: Yes - *Social History Last grade of school completed: Advanced degree Smoking Status: Never smoker Alcohol Intake: current Alcohol Intake Frequency:: holidays/special occasions only Substance Use Type: denies use *Occupational Status:: employed Housing: house Household Members: spouse *Travel in the last 8 weeks: Inside the [place] - Psychiatric History Pschychiatric History:: Reports:: Anxiety, Depression Family Hx:: Diabetes, Cancer, Hyperlipidemia, Hypertension
--- NOTE | 2020-02-07 07:12 | HMH.OPNOTE ---
Date of procedure: 02/07/20 Pre-op Diagnosis:: 1. Left deltoid ligament tear 2. Left ATFL sprain 3. Left ankle instability 4. Left ankle impingement 5. Left posterior tibial tendonitis 6. Left gastrocnemius equinus Post-op Diagnosis:: Same Procedure performed:: 1. Left ankle arthroscopy 2. Left direct open repair deltoid ligament 3. Left posterior tibial tendon debridement and repair 4. Left modified Brostr?m lateral ankle stabilization 5. Left gastrocnemius recession 6. Left ankle synovectomy 7. Left application of graft 8. Left application of posterior splint Surgeon:: Holley Clements DPM DIAL PAINTER:: Gonsalo Barakat Anesthesia: GETA, regional (left pop, saph nerve block) Estimated blood loss (mL): 30 Clinical Note:: Patient is 34F who had peroneal tendon, FHL tendon repair and excision of fracture fragment on 04/12/19. During postoperative physical therapy course patient sustained a deltoid ligament injury. She was treated with conservative care. Subsequent MRI showed deltoid ligament tear and ATFL sprain. MRI reviewed and discussed with the patient. Conservative treatment discussed but not recommended. Her left ankle surgery was 04/12/2019. At this point she has failed conservative care including: Modification of activity, modification of shoe gear, inserts, ice, elevation, stretching, formal physical therapy, immobilization in a splint/boot, stability ankle brace, topical/oral steroids, NSAIDs. She was also referred and seen by her PCP and endocrinology for multiple joint pain which may be contributing to the left ankle pain and impingement. Patient continues to have medial foot and ankle pain which is limiting her daily activity as well as the ability to exercise. We discussed surgery. All risks and benefits were discussed including but not limited to: damage to blood vessels and nerves, bleeding, infection, wound complications, delayed, mal or non-union of bone, post-traumatic arthritis, scar, residual instability, need for further surgery, need for removal of implant, prolonged swelling of the extremity, prolonged pain, CRPS/RSD, DVT, and anesthetic complications. No guarantees were given. All questions fully answered. The patient verbalized understanding and agreed to proceed with surgery. Pre op labs and testing ordered: hcg, CBC, BMP, EKG, covid. Rx for [place] 7.5/325 #30, Zofran, Motrin. Medical clearance per PCP, Dr. Mays Operative findings:: Synovitis and soft tissue in the left ankle joint. The posterior tibial tendon has synovitis with a small amount of thickening about 2 cm from the insertion on the navicular. The area of thickening was not a true rupture or full-thickness tear. Area measured ~1.5cm long. Deep deltoid ligament intact medially. The superficial deltoid was attenuated on the most lateral aspect and torn medially. ATFL intact but attenuated with a small tear. Operative note:: On this date and time patient was deemed an appropriate surgical candidate. Pre-op regional popliteal and saphenous nerve block performed by anesthesia. With informed consent signed, the patient was taken to the operating theater. The patient was positioned supine. General anesthesia was induced. Tourniquet was applied to the left thigh @250mmHg. The left lower extremity was prepped and draped in normal sterile fashion. Left gastrocnemius recession: Attention was directed to the posterior leg medially a linear incision was mapped out. Layer dissection carried down to the peritenon overlying the gastrocnemius muscle, with care taken to maintain surgical hemostasis and retract neurovascular structures. The peritenon was transected and preserved for later closure. The gastroc was identified and utilizing a 15 blade a Charlene transverse incision was made while the foot was being dorsiflexed and the tendon was released. Good reduction of the equinus deformity was noted. It was flushed with normal sterile saline. 3-0 Vicryl was used to reapproximate the perite
--- NOTE | 2020-02-07 08:10 | SUR.OPER ---
0745-family updated at this time
--- NOTE | 2020-02-07 09:47 | SUR.OPER ---
0946-family updated at this time
--- NOTE | 2020-02-07 09:54 | XR_ITS ---
PROCEDURE: XR ANKLE LT 2V CLINICAL INDICATION: DELTOID LIGAMENT REPAIR COMPARISON: CR XR ANKLE LT 2V from 04/12/2019 CR XR ANKLE LT MIN 3V from 04/12/2019 MR MR ANKLE LT WO/W CON from 12/04/2019 FINDINGS: Fluoroscopy time: 56 seconds One image submitted showing anchor screws at the medial and lateral malleolar region with good alignment. IMPRESSION: Status post ligamentous repair with C-arm guidance Dictated by: Aleksandar Vale MD 02/07/2020 10:16 Aleksandar Vale MD in [place] 02/07/2020 10:16
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
--- NOTE | 2020-02-07 10:34 | P.PN_ITS ---
[facility] Anesthesia Record Part I Intake, IV Amount: 1,300 Estimated blood loss (mL): 10 Urine output (mL): 0 Blood Products used (#): none Blood Pressure: 129/79 SaO2: 95 Pulse Rate: 94 Respiratory Rate: 18 Temperature: 97.6 F Patient is:: Drowsy, Stable Stable to PACU at:: 10:30
--- NOTE | 2020-02-07 13:24 | P.PN_ITS ---
[facility] Anesthesia Record Part II Discharge Time: 10:55 Destination: Surgical Day Care (OP Surgery) PACU nurse assessment reviewed?: Yes Patient Condition:: Good Anesthesia Complications:: None Swallowing reflex intact?: Yes Cyanosis?: No Blood Pressure: 117/70 Pulse Rate: 83 Temperature: 97.8 F Mental Status: Alert & Oriented Pain level:: 1 Nausea and/or vomitting:: None Intake, IV Amount: 25
== END 2020-02-07 12:35 | disposition home or self-care (01) ==
LOC: OR 06:04
PROVIDERS: PCP Family Medicine; Visit Provider Podiatrist
PROC: (CPT 27695; principal; 2020-02-07 07:30)
DX: M25.372 Other instability, left ankle (principal); S93.422A Sprain of deltoid ligament of left ankle, initial encounter; S96.812A Strain of other specified muscles and tendons at ankle and foot level, left foot, initial encounter; S93.492A Sprain of other ligament of left ankle, initial encounter; M21.6X2 Other acquired deformities of left foot; M76.822 Posterior tibial tendinitis, left leg; M25.872 Other specified joint disorders, left ankle and foot; M62.472 Contracture of muscle, left ankle and foot
CPT/HCPCS: 27695; 27625; 27687; C5275; 73600; 73610; 76000; 96374; C1713; C1762; J2405; Q4211

== ENCOUNTER → 2020-02-20 18:17 | Outpatient (CLI) | payer OTHER, SELFPAY | PROVIDERS: Visit Provider Podiatrist | DX: Z98.890 Other specified postprocedural states (principal); T81.49XA Infection following a procedure, other surgical site, initial encounter | CPT/HCPCS: 87070; 87205 ==

== ENCOUNTER 2020-02-24 09:38 | Emergency (ER) | payer OTHER, SELFPAY ==
[2020-02-24] VITALS (9 sets, daily range): BP systolic 102–133; BP diastolic 67–77; PULSE 62–83; RESP 16; TEMP 36.6–36.7; O2SAT 96–100; BMI 22.6
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
--- NOTE | 2020-02-24 10:34 | PC.NURSE ---
pt going to radiology
--- NOTE | 2020-02-24 11:50 | PC.NURSE ---
Dr Pepe to return call.
--- NOTE | 2020-02-24 11:55 | PC.NURSE ---
SAMANTHA ROJAS speaking with Dr. Nickerson
--- NOTE | 2020-02-24 11:59 | PC.NURSE ---
MD at bedside giving pt update
--- NOTE | 2020-02-24 12:05 | PC.NURSE ---
c-collar applied. pt c/o increasing pain with collar in place
--- NOTE | 2020-02-24 12:12 | PC.NURSE ---
Ortho at bedside
--- NOTE | 2020-02-24 12:31 | PC.NURSE ---
On the phone with attempting to get a trauma consult per MD request
--- NOTE | 2020-02-24 12:35 | PC.NURSE ---
Left message for call back for consult with [facility]
--- NOTE | 2020-02-24 12:35 | PC.NURSE ---
c collar d/lily per ortho, soft collar applied
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
--- NOTE | 2020-02-24 13:52 | PC.NURSE ---
report called to [facility] karie garcia rn
== END 2020-02-24 13:52 | disposition short-term general hospital (02) ==
PROVIDERS: Emergency Provider Emergency Medicine; PCP Family Medicine
DX: S22.20XA Unspecified fracture of sternum, initial encounter for closed fracture (principal); S22.021A Stable burst fracture of second thoracic vertebra, initial encounter for closed fracture; V53.5XXA Driver of pick-up truck or van injured in collision with car, pick-up truck or van in traffic accident, initial encounter; Y92.414 Local residential or business street as the place of occurrence of the external cause
CPT/HCPCS: 71250; 72125; 99284

== ENCOUNTER → 2020-03-27 15:09 | Outpatient (CLI) | payer OTHER, SELFPAY ==
[2020-03-27 16:30] LABS: Free T4 (Free Thyroxine) 1.17 ng/dl (0.78-2.19)
[2020-03-27 16:44] LABS: Thyroid Stimulating Hormone 1.57 uIU/mL (0.465-4.68)
== END ==
PROVIDERS: Visit Provider Family Medicine
DX: E03.9 Hypothyroidism, unspecified (principal)
CPT/HCPCS: 36415; 84439; 84443

== ENCOUNTER → 2020-04-20 15:02 | Outpatient (CLI) | payer OTHER, SELFPAY ==
[2020-04-20 16:16] LABS: Basophils # 0.1 K/mm3 (0-0.2); Basophils % 1.3 % (0.1-2.0); Eosinophils # 0.1 K/mm3 (0.0-0.4); Eosinophils % 1.2 % (0.1-12.0); Hematocrit 45.8 % (37.0-47.0); Hemoglobin 15.2 g/dL (12.2-16.2); Lymphocytes % 46.3 % (10-50); Mean Corpuscular HGB Conc 33.3 g/dL (31.8-35.4); Mean Corpuscular Hemoglobin 30.4 pg (27.0-31.2); Mean Corpuscular Volume 91.3 fl (81-99); Mean Platelet Volume 7.4 fl (7.4-10.4); Monocytes # 0.3 K/mm3 (0.1-1.0); Monocytes % 7.4 % (1.7-9.3); Neutrophils # 1.9 K/mm3 (1.8-7.8); Neutrophils % 43.9 % (37.0-80.0); Platelet Count 228 K/mm3 (142-424); Red Blood Count 5.01 M/mm3 (4.20-5.40); Red Cell Distribution Width 13.4 % (11.5-17.5); White Blood Count 4.3 K/mm3 (4.8-10.8)
[2020-04-20 16:26] LABS: Adenovirus,PCR Not Detected (NotDetected); Bordetella Pertussis Not Detected (NotDetected); Chlamydophila Pneumoniae, PCR Not Detected (NotDetected); Coronavirus 229E Not Detected (NotDetected); Coronavirus NL63 Not Detected (NotDetected); Coronavirus OC43 Not Detected (NotDetected); Coronovirus HKU1,PCR Not Detected (NotDetected); Human Metapneumovirus Not Detected (NotDetected); Influenza A, PCR Not Detected (NotDetected); Influenza AH1, 2009 Not Detected (NotDetected); Influenza AH1, PCR Not Detected (NotDetected); Influenza AH3,PCR Not Detected (NotDetected); Influenza B, PCR Not Detected (NotDetected); Mycoplasma Pneumoniae, PCR Not Detected (NotDetected); Parainfluenza 1, PCR Not Detected (NotDetected); Parainfluenza 2, PCR Not Detected (NotDetected); Parainfluenza 3, PCR Not Detected (NotDetected); Parainfluenza 4, PCR Not Detected (NotDetected); Respiratory Syncytial Virus Not Detected (NotDetected); Rhinovirus/Enterovirus Not Detected (NotDetected)
[2020-04-21 09:01] LABS: Coronavirus 19, PCR Detected (NotDetected)
== END ==
PROVIDERS: PCP Nurse Practitioner; Visit Provider Nurse Practitioner
DX: Z20.822 Contact with and (suspected) exposure to COVID-19 (principal); U07.1 COVID-19
CPT/HCPCS: 36415; 85025; 87581; 87633; 87798

== ENCOUNTER → 2020-06-15 17:23 | Outpatient (CLI) | payer OTHER, SELFPAY ==
[2020-06-15 17:41] LABS: Basophils # 0.1 K/mm3 (0-0.2); Eosinophils # 0.1 K/mm3 (0.0-0.4); Eosinophils % 1.2 % (0.1-12.0); Hematocrit 39.8 % (37.0-47.0); Hemoglobin 13.7 g/dL (12.2-16.2); Lymphocytes % 43.5 % (10-50); Mean Corpuscular HGB Conc 34.4 g/dL (31.8-35.4); Mean Corpuscular Hemoglobin 29.7 pg (27.0-31.2); Mean Corpuscular Volume 86.1 fl (81-99); Mean Platelet Volume 7.6 fl (7.4-10.4); Monocytes # 0.5 K/mm3 (0.1-1.0); Monocytes % 6.6 % (1.7-9.3); Neutrophils # 3.3 K/mm3 (1.8-7.8); Neutrophils % 47.7 % (37.0-80.0); Platelet Count 257 K/mm3 (142-424); Red Blood Count 4.62 M/mm3 (4.20-5.40); Red Cell Distribution Width 13.1 % (11.5-17.5)
[2020-06-15 20:41] LABS: Iron 59 ug/dL (37-170)
[2020-06-15 21:13] LABS: Thyroid Stimulating Hormone 0.14 uIU/mL (0.465-4.68)
== END ==
PROVIDERS: Visit Provider Nurse Practitioner
DX: R06.02 Shortness of breath (principal); E07.9 Disorder of thyroid, unspecified; R20.2 Paresthesia of skin
CPT/HCPCS: 36415; 83540; 84443; 85025

== ENCOUNTER → 2020-06-19 12:35 | Outpatient (CLI) | payer OTHER, SELFPAY ==
[2020-06-19 13:42] LABS: Chloride 107 mmol/L (98-107); Potassium 3.7 mmoL/L (3.5-5.1); Sodium 139 mmol/L (136-145)
[2020-06-19 13:45] LABS: Anion Gap 15.7 mEq/L (5-15); Blood Urea Nitrogen 15 mg/dl (7-17); Calcium 10.1 mg/dl (8.4-10.2); Carbon Dioxide 20 mmol/L (22.0-30.0); Estimated Glomerular Filt Rate 81 ml/min (>60); GFR (African American) 98 ML/MIN (>60); Glucose 98 mg/dl (74-100); Phosphorous 2.8 mg/dl (2.5-4.5)
[2020-06-19 14:03] LABS: 25-OH Vitamin D, Total 28.2 ng/mL (30-100); Free T4 (Free Thyroxine) 1.78 ng/dl (0.78-2.19)
[2020-06-20 14:06] LABS: Magnesium 1.7 mg/dl (1.6-2.3)
== END ==
PROVIDERS: Visit Provider Family Medicine
DX: R79.89 Other specified abnormal findings of blood chemistry (principal); E83.39 Other disorders of phosphorus metabolism; E83.42 Hypomagnesemia; E55.9 Vitamin D deficiency, unspecified; Z86.39 Personal history of other endocrine, nutritional and metabolic disease
CPT/HCPCS: 36415; 80048; 82306; 83735; 84100; 84439

== ENCOUNTER → 2020-06-24 14:15 | Outpatient (CLI) | payer OTHER, SELFPAY ==
--- NOTE | 2020-06-24 14:19 | XR_ITS ---
PROCEDURE: XR ANKLE WT BEARING LT MIN 3V CLINICAL INDICATION: post-op Follow-up surgery COMPARISON: CR XR ANKLE LT MIN 3V from 04/12/2019 CR XR ANKLE WT BEARING LT MIN 3V from 06/25/2019 CR XR ANKLE LT MIN 3V from 02/07/2020 CR XR ANKLE LT 2V from 02/07/2020 FINDINGS: The cast has been removed. There postsurgical changes with anchor screws at the medial malleolar and lateral malleolar region 2 in the medial malleolus and 1 in the lateral malleolus. There is good alignment. IMPRESSION: Good alignment with postsurgical changes Dictated by: Aleksandar Vale MD 06/24/2020 15:38 Aleksandar Vale MD in [place] 06/24/2020 15:38
--- NOTE | 2020-06-24 14:19 | XR_ITS ---
PROCEDURE: XR FOOT WT BEARING LT 3V CLINICAL INDICATION: post-op Follow-up surgery COMPARISON: CR XR FOOT WT BEARING LT 3V from 12/13/2018 CR XR FOOT WT BEARING LT 3V from 02/26/2019 CR XR FOOT WT BEARING LT 3V from 06/25/2019 FINDINGS: Prior bunionectomy of the 1st metatarsal. There is good alignment. No acute fracture or dislocation is evident. No lytic or blastic change. The joint spaces are well-preserved. No significant degenerative/arthritic changes. No erosive changes evident. Other findings:None. IMPRESSION: Prior bunionectomy otherwise negative Dictated by: Aleksandar Vale MD 06/24/2020 15:39 Aleksandar Vale MD in [place] 06/24/2020 15:39
== END ==
PROVIDERS: PCP Family Medicine; Visit Provider Podiatrist
DX: Z98.890 Other specified postprocedural states (principal)
CPT/HCPCS: 73610; 73630

== ENCOUNTER → 2020-07-21 17:32 | Outpatient (CLI) | payer OTHER, SELFPAY ==
[2020-07-21 19:54] LABS: 25-OH Vitamin D, Total 43.5 ng/mL (30-100)
[2020-07-23 13:15] LABS: Thyroid Stimulating Hormone 1.63 uIU/mL (0.465-4.68)
== END ==
PROVIDERS: Visit Provider Family Medicine
DX: E55.9 Vitamin D deficiency, unspecified (principal); Z79.899 Other long term (current) drug therapy
CPT/HCPCS: 36415; 82306; 84439; 84443

== ENCOUNTER 2020-07-22 17:00 | Outpatient (RCR) | payer OTHER, SELFPAY | END 2020-07-22 17:05 | disposition home or self-care (01) | LOC: PT 17:00 | PROVIDERS: PCP Family Medicine; Visit Provider Podiatrist | DX: M76.822 Posterior tibial tendinitis, left leg (principal); S93.422A Sprain of deltoid ligament of left ankle, initial encounter; Z98.890 Other specified postprocedural states | CPT/HCPCS: 97010; 97014; 97035; 97110; 97140; 97163; 97164; G0283 ==

== ENCOUNTER → 2020-07-27 17:50 | Outpatient (CLI) | payer OTHER, SELFPAY ==
--- NOTE | 2020-07-27 17:58 | XR_ITS ---
PROCEDURE: XR CHEST 2V CLINICAL HISTORY: SOA COMPARISON: CR CXR CHEST(2 VIEWS-NOT PORTABLE) from 06/29/[address] CHEST WO CON from 02/24/2020 FINDINGS: The cardiomediastinal silhouette and pulmonary vascularity are within normal limits. The lungs are clear without infiltrates, suspicious nodules, or pleural effusions. No acute bony abnormalities. IMPRESSION: No acute findings. Dictated by: Aleksandar Vale MD 07/27/2020 19:08 Aleksandar Vale MD in [place] 07/27/2020 19:08
== END ==
PROVIDERS: PCP Family Medicine; Visit Provider Family Medicine
DX: R06.02 Shortness of breath (principal)
CPT/HCPCS: 71046

== ENCOUNTER → 2020-08-03 08:53 | Outpatient (CLI) | payer OTHER, SELFPAY ==
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
== END ==
PROVIDERS: PCP Family Medicine; Visit Provider Family Medicine
DX: R05 Cough (principal)
CPT/HCPCS: 71260; Q9967

== ENCOUNTER → 2020-08-06 09:53 | Outpatient (CLI) | payer OTHER, SELFPAY | PROVIDERS: PCP Family Medicine; Visit Provider Family Medicine | DX: R05 Cough (principal) | CPT/HCPCS: 94060 ==

== ENCOUNTER → 2020-09-24 12:40 | Outpatient (CLI) | payer OTHER, SELFPAY ==
--- NOTE | 2020-09-24 12:42 | XR_ITS ---
PROCEDURE: XR ANKLE WT BEARING LT MIN 3V XR foot weight-bearing left minimum three views CLINICAL INDICATION: postop. Pain running yesterday. COMPARISON: CR XR ANKLE WT BEARING LT MIN 3V from 06/25/2019 CR XR ANKLE LT MIN 3V from 02/07/2020 CR XR ANKLE LT 2V from 02/07/2020 CR XR ANKLE WT BEARING LT MIN 3V from 06/24/2020 CR XR FOOT WT BEARING LT 3V from 09/24/2020 FINDINGS: Three views of the left ankle show stable postop changes of distal tibia and fibula with small screws. No acute fracture or dislocation. Ankle joint mortise appears intact. Mild soft tissue swelling about the ankle joint. Three views of the left foot again show the postop changes involving the distal tibia and fibula. No acute fracture or dislocation. Mild degenerative change of 1st metatarsophalangeal joint and mild erosive changes of the medial head of the 1st metatarsal. Joint spaces are otherwise normal. IMPRESSION: Postop changes involving the distal tibia and fibula with mild soft tissue swelling about the ankle joint. No acute fracture or dislocation of left foot or ankle. Mild degenerative change of the 1st metatarsophalangeal joint mild erosive changes of the medial head of the 1st metatarsal. Dictated by: Ton Tyler MD 09/24/2020 13:05 Ton Tyler MD in [facility] 09/24/2020 13:05
== END ==
PROVIDERS: PCP Family Medicine; Visit Provider Podiatrist
DX: M19.172 Post-traumatic osteoarthritis, left ankle and foot (principal); Z98.890 Other specified postprocedural states
CPT/HCPCS: 73610; 73630

== ENCOUNTER → 2020-11-03 13:22 | Outpatient (CLI) | payer OTHER, SELFPAY ==
[2020-11-03 14:46] LABS: Free T4 (Free Thyroxine) 1.19 ng/dl (0.78-2.19)
[2020-11-03 15:01] LABS: Thyroid Stimulating Hormone 1.85 uIU/mL (0.465-4.68)
== END ==
PROVIDERS: Visit Provider Family Medicine
DX: R79.89 Other specified abnormal findings of blood chemistry (principal)
CPT/HCPCS: 36415; 84439; 84443

== ENCOUNTER 2020-12-14 16:18 | Emergency (ER) | payer OTHER, SELFPAY ==
[2020-12-14 17:25] VITALS: BP 130/80; PULSE 61; RESP 20; TEMP 37.1; O2SAT 100; BMI 20.9
--- NOTE | 2020-12-14 17:43 | XR_ITS ---
PROCEDURE INFORMATION: Exam: XR Chest Exam date and time: 12/14/2020 5:43 PM Age: 35 years old Clinical indication: Patient HX: Persistent cough since covid diagnosis in apr of this year. TECHNIQUE: Imaging protocol: XR of the chest. Views: 2 views. COMPARISON: CT CHEST W CON 08/03/2020 9:22 AM FINDINGS: Lungs: Unremarkable. No consolidation. Pleural spaces: Unremarkable. No pleural effusion. No pneumothorax. Heart/Mediastinum: Unremarkable. No cardiomegaly. Bones/joints: Unremarkable. IMPRESSION: No acute findings.
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
[2020-12-14 18:20] VITALS: BP 130/80; PULSE 61; RESP 20; TEMP 37.1; O2SAT 100
== END 2020-12-14 18:36 | disposition home or self-care (01) ==
PROVIDERS: Emergency Provider Nurse Practitioner; PCP Family Medicine
DX: M94.0 Chondrocostal junction syndrome [Tietze] (principal); F41.8 Other specified anxiety disorders; Z79.899 Other long term (current) drug therapy; X50.0XXA Overexertion from strenuous movement or load, initial encounter; Y92.89 Other specified places as the place of occurrence of the external cause
CPT/HCPCS: 71046; 99202; G0463

== ENCOUNTER → 2021-01-07 15:00 | Outpatient (CLI) | payer OTHER, SELFPAY | PROVIDERS: PCP Family Medicine; Visit Provider Internal Medicine Pulmonary Disease | DX: R06.00 Dyspnea, unspecified (principal); Z86.16 Personal history of COVID-19; R05 Cough | CPT/HCPCS: 94070; 95070; J7674 ==

== ENCOUNTER 2021-02-16 10:42 | Emergency (ER) | payer OTHER, SELFPAY ==
[2021-02-16 10:43] VITALS: BP 129/75; PULSE 57; RESP 19; TEMP 37.2; O2SAT 99; BMI 21.7
[2021-02-16 11:38] LABS: UTC Strep Screen (Rapid) Negative (Negative)
[2021-02-16 12:08] VITALS: BP 129/75; PULSE 57; RESP 19; TEMP 37.2; O2SAT 99
--- NOTE | 2021-02-16 12:08 | HMH.EDUTC ---
[facility] [place] Clinical Impression: URI (upper respiratory infection) Qualifiers: URI type: unspecified URI Qualified Code(s): J06.9 - Acute upper respiratory infection, unspecified Disposition: Home, Self-Care Condition on Discharge: Good Instructions: Sore Throat, Methylprednisolone, Cefdinir Additional Instructions: *Monitor Temp, Over the counter Motrin or Tylenol as directed/as needed Tylenol every 4 hours and Motrin every 6 hours (as long as your family doctor has told you that you can take it) for fever or pain. and straight to ER if unable to lower temp less than 101.0 after medication given *Warm salt water gargles may help to soothe the throat *Throat Lozenges *Warm fluids like tea with honey may help to soothe the throat *Sleep elevated *Humidifier/Vaporizer Your throat swab was sent for culture. Those results are typically sent to your primary care. Be sure to follow up in 2-3 days with your family doctor/primary care physician if no improvement so they can review those result and treat if necessary. If you don?t have a primary care doctor, I recommend you get one but in the mean time, you will have to return to a walk in clinic Follow up IMMEDIATELY for new or worsening symptoms or no Noticeable improvement over the next 48-72 hours. 911 for difficulty breathing or swallowing Prescriptions: methylPREDNISolone [Medrol 4mg tab] 4 mg PO DIRECTED #21 tab Transmission Status: Received by [facility] Cefdinir [Omnicef 300mg Capsule] 300 mg PO BID #20 cap Transmission Status: Received by [facility] Referrals: Zeke Mays MD [Primary Care Provider] - As needed Medical Decision Making - Yordy Inquiry Pt receiving controlled substance: No Yordy was queried for this patient: No Vital Signs: 02/16/21 10:43 Temperature 98.9 F Temperature Source Oral Pulse Rate [Left Radial] 57 L Respiratory Rate 19 Blood Pressure [Right Arm] 129/75 Blood Pressure Mean [Right Arm] 93 Blood Pressure Source [Right Arm] Automatic Cuff Blood Pressure Position [Right Arm] Sitting 02 Sat by Pulse Oximetry 99 Oxygen Delivery Method Room Air - Lab Data Lab results reviewed: Yes: I reviewed the patient's lab results. Lab Results 02/16/21 11:27: Strep Scn Rapid Clinic Negative Orders (Tests/Meds): ORDERS Category Date Time Status Strep Screen Confirmation Stat Micro 02/16/21 11:27 Received [facility] [place] - General Stated complaint: possible strep Time Seen by Provider: 02/16/21 12:08 Mode of Arrival: Ambulatory Source of Information: Patient Limitations: No Limitations Description of Symptoms (Recalled from Triage Doc. by RN): sore throat since this morning HEENT Symptoms (Recalled from RN notes): Yes Resp Symptoms (Recalled from RN notes): No Skin Symptoms (Recalled from RN notes): No MS Symptoms (Recalled from RN notes): No Functional Status (Recalled from RN notes): na - History of Present Illness Provider Complaint: Patient states that she has been having sore throat since this morning that has continued to get worse as the day went on States that she was having more swelling on the right side and hurt when she would swallow - Related Data Home Medications Medication Instructions Recorded Confirmed cyclobenzaprine 5 mg tablet 5 mg PO QHS PRN 03/13/19 01/13/21 hydroxyzine HCl 25 mg tablet 25 mg PO tab 06/24/20 01/13/21 cetirizine 10 mg capsule 10 mg PO DAILY PRN 12/01/20 01/13/21 montelukast 10 mg tablet 10 mg PO tab 12/01/20 01/13/21 promethazine-DM 6.25 mg-15 mg/5 mL ml PO 12/01/20 01/13/21 oral syrup Previous Rx's Medication Instructions Recorded ibuprofen 800 mg tablet 800 mg PO BID 30 Days #60 tab 02/04/20 Cyclobenzaprine HCl [Flexeril 10mg 10 mg PO Q8H PRN 10 Days #30 tab 02/24/20 tablet] trazodone 100 mg tablet 100 mg PO HS 90 Days #90 tab 05/08/20 azelastine 205.5 mcg (0.15 %) 2 spray INTRANASAL HS #30 ml 12/01/20 nasal spray budeso
== END 2021-02-16 12:09 | disposition home or self-care (01) ==
PROVIDERS: Emergency Provider Nurse Practitioner; PCP Family Medicine
DX: J06.9 Acute upper respiratory infection, unspecified (principal); J45.909 Unspecified asthma, uncomplicated; F41.8 Other specified anxiety disorders; Z79.899 Other long term (current) drug therapy; Z88.5 Allergy status to narcotic agent
CPT/HCPCS: 87880; 99202; G0463

== ENCOUNTER → 2021-03-08 07:21 | Outpatient (CLI) | payer OTHER, SELFPAY ==
--- NOTE | 2021-03-08 07:22 | CT_ITS ---
PROCEDURE: CT SINUS WO CON CLINICAL HISTORY: chronic sough COMPARISON: No exams were available for comparison TECHNIQUE: Axial images obtained with sagittal and coronal reformats. All CT scans at the facility use one or more dose reduction, viz: automated exposure control, ma/kV adjustment per patient size (including targeted exams where dose is matched to indication, i.e. head), or iterative reconstruction technique. FINDINGS: No mucosal thickening, sinus air-fluid level, or sinus mass. The ostiomeatal units are patent. There is a small left phil bullosa. Mastoid sinuses have an unremarkable appearance. No bony anomalies evident. Unremarkable TMJs. Unremarkable orbits. Slight increased soft tissue density noted in the left parapharyngeal region at the tonsillar area with obliteration of the left parapharyngeal space. Please correlate with direct visualization as this could be due to nondistention. Cannot exclude underlying tonsillar enlargement. There are few scattered small nodes in the neck. IMPRESSION: Negative CT sinuses. Increased soft tissue density in the left parapharyngeal region with obliteration of the left parapharyngeal space possibly due to nondistention. Please correlate with direct visualization to exclude underlying pathology Dictated by: Aleksandar Vale MD 03/08/2021 10:08 Aleksandar Vale MD in [facility] 03/08/2021 10:08
== END ==
PROVIDERS: PCP Family Medicine; Visit Provider Otolaryngology
DX: R05.3 Chronic cough (principal); J32.9 Chronic sinusitis, unspecified
CPT/HCPCS: 70486

== ENCOUNTER → 2021-03-17 16:40 | Outpatient (CLI) | payer OTHER, SELFPAY ==
[2021-03-21 18:08] LABS: D001-IgE D pteronyssinus <0.10 kU/L (Class 0); D002-IgE D farinae <0.10 kU/L (Class 0); E001-IgE Cat Dander <0.10 kU/L (Class 0); E005-IgE Dog Dander <0.10 kU/L (Class 0); E072-IgE Mouse Urine <0.10 kU/L (Class 0); G002-IgE Bermuda Grass <0.10 kU/L (Class 0); G006-IgE Timothy Grass <0.10 kU/L (Class 0); I006-IgE Cockroach, German <0.10 kU/L (Class 0); Immunoglobulin E, Total 15 IU/mL (6-495); M001-IgE Penicillium chrysogen <0.10 kU/L (Class 0); M002-IgE Cladosporium herbarum <0.10 kU/L (Class 0); M003-IgE Aspergillus fumigatus <0.10 kU/L (Class 0); M006-IgE Alternaria alternata <0.10 kU/L (Class 0); T001-IgE Maple/Box Elder <0.10 kU/L (Class 0); T003-IgE Common Silver Birch <0.10 kU/L (Class 0); T006-IgE Cedar, Mountain <0.10 kU/L (Class 0); T007-IgE Oak, White <0.10 kU/L (Class 0); T008-IgE Elm, American <0.10 kU/L (Class 0); T010-IgE Walnut <0.10 kU/L (Class 0); T011-IgE Maple Leaf Sycamore <0.10 kU/L (Class 0); T014-IgE Cottonwood <0.10 kU/L (Class 0); T015-IgE Ash, White <0.10 kU/L (Class 0); T022-IgE Pecan, Hickory <0.10 kU/L (Class 0); T070-IgE White Mulberry <0.10 kU/L (Class 0); W001-IgE Ragweed, Short <0.10 kU/L (Class 0); W011-IgE Thistle, Russian <0.10 kU/L (Class 0); W014-IgE Pigweed, Common <0.10 kU/L (Class 0); W018-IgE Sheep Sorrel <0.10 kU/L (Class 0)
== END ==
PROVIDERS: Visit Provider Otolaryngology
DX: R05.9 Cough, unspecified (principal); J32.9 Chronic sinusitis, unspecified
CPT/HCPCS: 82785; 86003

== ENCOUNTER → 2021-03-19 12:07 | Outpatient (CLI) | payer OTHER, SELFPAY ==
--- NOTE | 2021-03-19 12:11 | XR_ITS ---
PROCEDURE: XR ANKLE WT BEARING LT MIN 3V CLINICAL INDICATION: pain COMPARISON: CR XR ANKLE LT MIN 3V from 02/07/2020 CR XR ANKLE LT 2V from 02/07/2020 CR XR ANKLE WT BEARING LT MIN 3V from 06/24/2020 CR XR ANKLE WT BEARING LT MIN 3V from 09/24/2020 FINDINGS: There are 2 anchor screws at the medial malleolus someone at the lateral malleolus. No fracture or dislocation. No lytic or blastic change. The ankle mortise is preserved and the talar dome has an unremarkable appearance IMPRESSION: No acute findings. Dictated by: Aleksandar Vale MD 03/19/2021 13:01 Aleksandar Vale MD in [facility] 03/19/2021 13:01
== END ==
PROVIDERS: PCP Family Medicine; Visit Provider Podiatrist
DX: M25.572 Pain in left ankle and joints of left foot (principal)
CPT/HCPCS: 73610

== ENCOUNTER → 2021-03-24 12:45 | Outpatient (CLI) | payer OTHER, SELFPAY ==
--- NOTE | 2021-03-24 12:49 | XR_ITS ---
PROCEDURE: XR MULTIPLE SPINE 6+V CLINICAL INDICATION: BACK PAIN COMPARISON: No exams were available for comparison FINDINGS: Thoracic spine: No fracture or dislocation. Minimal thoracic curvature convex right. No significant degenerative change. Lumbar spine: Minimal lumbar curvature convex left. No fracture or dislocation. Disc spaces are well preserved. IMPRESSION: Minimal thoracolumbar curvature otherwise negative Dictated by: Aleksandar Vale MD 03/24/2021 13:23 Aleksandar Vale MD in [facility] 03/24/2021 13:23
== END ==
PROVIDERS: PCP Family Medicine; Visit Provider Family Medicine
DX: M54.6 Pain in thoracic spine (principal); M54.50 Low back pain, unspecified
CPT/HCPCS: 72084

== ENCOUNTER → 2021-04-14 15:24 | Outpatient (CLI) | payer OTHER, SELFPAY ==
--- NOTE | 2021-04-14 15:32 | MR_ITS ---
FINAL REPORT TECHNIQUE: MRI images of the thoracic spine were performed. CLINICAL HISTORY: LOWER T SPINE PAIN WITHOUT INJURY OR TRAUMA. FINDINGS: Intravertebral disk signal is normal. Vertebral body signal is normal. There is no significant degenerative change. Thoracic cord demonstrates normal signal and configuration. On axial images there is no significant disc bulge or protrusion. There is no significant central canal stenosis. IMPRESSION: No acute process. Reviewed, Interpreted and Dictated by Rafa Walker MD Transcribed by Brody Smith Authenticated by Rafa Walker MD on 04/14/2021 06:42:49 PM [facility]
== END ==
PROVIDERS: PCP Family Medicine; Visit Provider Family Medicine
DX: M54.6 Pain in thoracic spine (principal); M54.50 Low back pain, unspecified
CPT/HCPCS: 72146

== ENCOUNTER → 2021-07-14 11:49 | Outpatient (CLI) | payer OTHER, SELFPAY ==
--- NOTE | 2021-07-14 11:51 | XR_ITS ---
FINAL REPORT CLINICAL HISTORY: pain FINDINGS: LEFT ANKLE: Three views of the left ankle were obtained. There is no acute fracture or dislocation. The joint spaces and mortise are intact. There is no soft tissue abnormality. There are postoperative changes in the medial and lateral malleolus. IMPRESSION: No acute bony abnormality. Reviewed, Interpreted and Dictated by Ulises Vaughn III, MD Transcribed by Monica Lee Authenticated by Ulises Vaughn III, MD on 07/14/2021 01:05:35 PM [facility]
== END ==
PROVIDERS: PCP Family Medicine; Visit Provider Podiatrist
DX: M25.572 Pain in left ankle and joints of left foot (principal)
CPT/HCPCS: 73610

== ENCOUNTER 2021-08-25 11:40 | Emergency (ER) | payer OTHER, SELFPAY ==
[2021-08-25 11:41] VITALS: BP 125/73; PULSE 62; RESP 16; TEMP 36.9; O2SAT 98; BMI 21.7
[2021-08-25 11:53] VITALS: BMI 21.7
--- NOTE | 2021-08-25 11:54 | PC.NURSE ---
pt cleaning site with hibiclens at this time.
--- NOTE | 2021-08-25 12:17 | HMH.EDGENADL ---
ED Disposition Clinical Impression: Abrasion Disposition: Home, Self-Care Condition on Discharge: Good Instructions: DI for Skin Abscess Additional Instructions: Please follow-up with Dr. Mays regarding the remainder of your lab work. Additionally, please contact Yi at extension [phone] if you have any further questions regarding side effects from postexposure HIV medications. If any other concerns arise, please return to the emergency department for reassessment. Referrals: Zeke Mays MD [Primary Care Provider] - - Critical Care Critical Care Time: No Attestation: On 08/25/21, the high probability of a clinically significant, sudden or life threatening deterioration of the following system(s) required my full and direct attention, intervention and personal management. The time I documented below is in addition to time spent performing reported procedures but includes the following listed in this critical care notation. Medical Decision Making - Medical Records Medical records reviewed: Yes: I reviewed the patient's medical records. - Yordy Inquiry Pt receiving controlled substance: No Vital Signs: 08/25/21 11:41 Temperature 98.5 F Temperature Source Oral Pulse Rate [Left Radial] 62 Respiratory Rate 16 Blood Pressure [Left Arm] 125/73 Blood Pressure Mean [Left Arm] 90 Blood Pressure Source [Left Arm] Automatic Cuff Blood Pressure Position [Left Arm] Sitting 02 Sat by Pulse Oximetry 98 Oxygen Delivery Method Room Air - Lab Data Lab results reviewed: Yes: I reviewed the patient's lab results. Lab Results 08/25/21 12:07: Serum HCG, Qual Negative 08/25/21 12:10: WBC 5.9, RBC 4.57, Hgb 14.4, Hct 41.6, MCV 91.0, MCH 31.6 H, MCHC 34.8, RDW 13.3, Plt Count 245, MPV 7.5, Neut % (Auto) 44.6, Lymph % (Auto) 45.5, [place] % (Auto) 6.0, Eos % (Auto) 1.6, Baso % (Auto) 2.3 H, Neut # (Auto) 2.6, Lymph # (Auto) 2.7, [place] # (Auto) 0.4, Eos # (Auto) 0.1, Baso # (Auto) 0.1 08/25/21 12:10: PT 10.5, INR 0.92, APTT 26.4 08/25/21 12:10: Total Bilirubin 0.6, Direct Bilirubin 0.0, Conjugated Bilirubin 0.0, Indirect Bilirubin 0.6, Unconjugated Bilirubin 0.7, AST 31, ALT 19, Alkaline Phosphatase 50, Total Protein 7.3, Albumin 4.2 Result diagrams: 08/25/21 12:10 Orders (Tests/Meds): ED MEDICATIONS Discontinued Medications Generic Name Dose Route Start Last Admin Trade Name Freq PRN Reason Stop Dose Admin Tetanus/Diphtheria Toxoids 0.5 ml 08/25/21 12:10 08/25/21 13:28 Tetanus-Diphth Toxoid, Adult 0.5ml Syr IM 08/25/21 12:11 0.5 ml .ONCE ONE Administration ORDERS Category Date Time Status HBsAg Screen Stat Lab 08/25/21 12:10 Received HIV Panel [id number] Stat Lab 08/25/21 12:10 Received Hepatitis B Surf Ab Quant Stat Lab 08/25/21 12:10 Received Hepatitis C Antibody Stat Lab 08/25/21 12:10 Received Medical Decision Narrative: Patient is a 36F presenting for chief complaint of work exposure to blood-borne infectious pathogen. Differential diagnosis includes, but is not limited to, low risk versus high risk exposure to infectious disease. Lab work was obtained per postexposure prophylaxis protocol guideline. Baseline work is okay, antibodies are not back at this time but patient will follow-up with Dr. Mays. Patient was given an extension for pharmacist and infectious disease expert in case she has further questions in addition to counseling regarding risks and benefits of HIV prophylaxis today. Patient declined at this time. Infectious disease personnel reach out to source patient as well to see if lab work can be obtained. At this time, patient is comfortable with discharge and is comfortable following up. She was counseled regarding return precautions and discharged in a stable condition. Given tetanus booster prior to discharge. General Adult HPI - General Chief complaint: Skin/Abscess/Foreign Body Stated complaint: [id number] serafin to right thumb Time Seen by Provider:
[2021-08-25 12:18] LABS: Basophils # 0.1 K/mm3 (0-0.2); Basophils % 2.3 % (0.1-2.0); Eosinophils # 0.1 K/mm3 (0.0-0.4); Eosinophils % 1.6 % (0.1-12.0); Hematocrit 41.6 % (37.0-47.0); Hemoglobin 14.4 g/dL (12.2-16.2); Lymphocytes # 2.7 K/mm3 (0.7-4.5); Lymphocytes % 45.5 % (10-50); Mean Corpuscular HGB Conc 34.8 g/dL (31.8-35.4); Mean Corpuscular Hemoglobin 31.6 pg (27.0-31.2); Mean Platelet Volume 7.5 fl (7.4-10.4); Monocytes # 0.4 K/mm3 (0.1-1.0); Neutrophils # 2.6 K/mm3 (1.8-7.8); Neutrophils % 44.6 % (37.0-80.0); Platelet Count 245 K/mm3 (142-424); Red Blood Count 4.57 M/mm3 (4.20-5.40); Red Cell Distribution Width 13.3 % (11.5-17.5); White Blood Count 5.9 K/mm3 (4.8-10.8)
[2021-08-25 12:28] LABS: Alanine Aminotransferase 19 U/L (12-78); Albumin Level 4.2 g/dl (3.5-5.0); Alkaline Phosphatase 50 U/L (38-126); Aspartate Amino Transferase 31 U/L (14-36); Bilirubin,Indirect 0.6 mg/dL (0.0-0.9); Bilirubin,Total 0.6 mg/dl (0.2-1.3); Bilirubin,Unconjugated 0.7 mg/dL (0.0-1.1); Total Protein,Serum 7.3 g/dl (6.3-8.2)
[2021-08-25 12:31] LABS: Activated Partial Thrombo Time 26.4 seconds (22.8-30.6); INR 0.92 (0.9-1.1); Prothrombin Time 10.5 seconds (10.1-12.5)
[2021-08-25 13:20] LABS: HCG Qualitative, Serum Negative (Negative)
[2021-08-25 14:31] VITALS: BP 121/77; PULSE 80; RESP 18; TEMP 36.9; O2SAT 99
[2021-08-26 08:18] LABS: HIV Screen 4th Generation wRfx Non Reactive (Non Reactive)
[2021-08-26 09:26] LABS: Hepatitis B Surf Ab Quant <3.1 mIU/mL (Immunity>9.9); Hepatitis B Surface Antigen Negative (Negative); Hepatitis C Antibody <0.1 s/co ratio (0.0-0.9)
== END 2021-08-25 14:32 | disposition home or self-care (01) ==
PROVIDERS: Emergency Provider Emergency Medicine; PCP Family Medicine
DX: S61.031A Puncture wound without foreign body of right thumb without damage to nail, initial encounter (principal); W26.9XXA Contact with unspecified sharp object(s), initial encounter; Y92.69 Other specified industrial and construction area as the place of occurrence of the external cause; Y99.0 Civilian activity done for income or pay; Z23 Encounter for immunization
CPT/HCPCS: 36415; 80076; 84703; 85025; 85610; 85730; 86703; 86706; 87340; 87380; 90714; 96372; 99283; G0432

== ENCOUNTER → 2021-09-07 16:29 | Outpatient (CLI) | payer OTHER, SELFPAY ==
--- NOTE | 2021-09-07 16:33 | XR_ITS ---
PROCEDURE INFORMATION: Exam: XR Left Ankle Exam date and time: 09/07/2021 4:43 PM Age: 36 years old Clinical indication: Pain; Ankle; Left; Prior surgery TECHNIQUE: Imaging protocol: XR Left ankle. Views: 3 or more views. COMPARISON: CR XR ANKLE WT BEARING LT MIN 3V 07/14/2021 11:56 AM FINDINGS: Bones/joints: Postoperative changes involving the medial and lateral malleoli again demonstrated. Findings stable. No evidence of acute osseous injury. Soft tissues: Normal. IMPRESSION: No evidence of acute osseous injury.
--- NOTE | 2021-09-07 16:33 | XR_ITS ---
PROCEDURE INFORMATION: Exam: XR Left Foot Complete; Alignment Exam date and time: 09/07/2021 4:43 PM Age: 36 years old Clinical indication: Pain; Foot; Left; Prior surgery TECHNIQUE: Imaging protocol: XR Left foot. Views: 3 or more views. COMPARISON: CR XR FOOT WT BEARING LT 3V 09/24/2020 12:44 PM FINDINGS: Bones/joints: No evidence of acute osseous injury. Postoperative changes consistent with previous bunionectomy. Findings stable. Postoperative changes involving the medial and lateral malleoli again partially visualized. Soft tissues: Normal. IMPRESSION: 1. No evidence of acute osseous injury. 2. Postoperative changes involving the 1st metatarsophalangeal articulation. Findings stable.
== END ==
PROVIDERS: PCP Family Medicine; Visit Provider Podiatrist
DX: M79.672 Pain in left foot (principal)
CPT/HCPCS: 73610; 73630

== ENCOUNTER 2021-09-12 09:25 | Emergency (ER) | payer OTHER, SELFPAY ==
[2021-09-12 10:23] VITALS: BP 124/76; PULSE 63; RESP 17; TEMP 37.1; O2SAT 99; BMI 22.1
[2021-09-12 10:34] LABS: Strep Scrn Group A (Rapid) Negative (Negative)
--- NOTE | 2021-09-12 10:50 | HMH.EDUTC ---
[facility] [place] [facility] [place] Clinical Impression: URI (upper respiratory infection) Qualifiers: URI type: unspecified URI Qualified Code(s): J06.9 - Acute upper respiratory infection, unspecified Disposition: Home, Self-Care Condition on Discharge: Good Instructions: Sore Throat, DI for Nasal Congestion Additional Instructions: *Monitor Temp, Over the counter Motrin or Tylenol as directed/as needed Tylenol every 4 hours and Motrin every 6 hours (as long as your family doctor has told you that you can take it) for fever or pain. and straight to ER if unable to lower temp less than 101.0 after medication given *Warm salt water gargles may help to soothe the throat *Throat Lozenges *Warm fluids like tea with honey may help to soothe the throat *Sleep elevated *Humidifier/Vaporizer *Flonase 2 sprays in each nostril daily but be aware that it may take 2-3 days before you notice improvement Continue your Cefdinir as prescribed Your throat swab was sent for culture. Those results are typically sent to your primary care. Be sure to follow up in 2-3 days with your family doctor/primary care physician if no improvement so they can review those result and treat if necessary. If you don?t have a primary care doctor, I recommend you get one but in the mean time, you will have to return to a walk in clinic Follow up IMMEDIATELY for new or worsening symptoms or no Noticeable improvement over the next 48-72 hours. 911 for difficulty breathing or swallowing You were tested for today for Upper Respiratory Panel with COVID19 your test result should be back in the next 24-48 hours, you may check your results on the [facility] My Health Portal Make sure to take your Vitamins Vit. C Vit D and Zinc if you can take them Prescriptions: Benzonatate [Benzonatate 100mg cap] 100 mg PO Q8HP PRN #15 cap PRN Reason: Cough Transmission Status: Pending to [facility] Fluticasone Propionate [Flonase 50mcg nasal spray 16gm] 1 spr NS DAILY #1 each Transmission Status: Pending to Clinic [facility] Referrals: Zeke Mays MD [Primary Care Provider] - As needed Time of Disposition: 11:01 Medical Decision Making - Yordy Inquiry Pt receiving controlled substance: No Y[place]y was queried for this patient: No Vital Signs: 09/12/21 10:23 Temperature 98.7 F Temperature Source Oral Pulse Rate [Left Radial] 63 Respiratory Rate 17 Blood Pressure [Right Arm] 124/76 Blood Pressure Mean [Right Arm] 92 02 Sat by Pulse Oximetry 99 - Lab Data Lab results reviewed: Yes: I reviewed the patient's lab results. Lab Results 09/12/21 10:20: Group A Strep Rapid Negative Orders (Tests/Meds): ORDERS Category Date Time Status Strep Screen Confirmation Stat Micro 09/12/21 10:20 Received [facility] [place] [facility] [place]PI - General Stated complaint: sore throat Time Seen by Provider: 09/12/21 10:51 Source of Information: Patient Description of Symptoms (Recalled from Triage Doc. by RN): patient comes in with complaints of sore throat that began after she started antibiotic. patient went to PCP on monday and was given cefdinir. HEENT Symptoms (Recalled from RN notes): Yes Resp Symptoms (Recalled from RN notes): Yes Skin Symptoms (Recalled from RN notes): No MS Symptoms (Recalled from RN notes): No Functional Status (Recalled from RN notes): wnl - History of Present Illness Provider Complaint: Patient states that she seen PCP on Monday and was started on antibiotics States that since then she is feeling worse and having sore scratchy throat States that she was worried that she may have strep throat or something else going on so she came in - Related Data Home Medications Medication Instructions Recorded Confirmed hydroxyzine HCl 25 mg tablet 25 mg PO tab 06/24/20 09/09/21 cetirizine 10 mg capsule 10 mg PO DAILY PRN 12/01/20 09/09/21 montelukast 10 mg tablet 10 mg PO tab 12/01/20 09/09/21 melatonin 10 mg capsule 10 mg PO HS PRN 03/03/21 09/09/21 escitalopram ox
[2021-09-12 10:55] VITALS: BP 124/76; PULSE 63; RESP 17; TEMP 37.1
[2021-09-12 11:01] LABS: Adenovirus,PCR Not Detected (NotDetected); Bordetella Pertussis Not Detected (NotDetected); Chlamydophila Pneumoniae, PCR Not Detected (NotDetected); Coronavirus 229E Not Detected (NotDetected); Coronavirus NL63 Not Detected (NotDetected); Coronavirus OC43 Not Detected (NotDetected); Coronovirus HKU1,PCR Not Detected (NotDetected); Human Metapneumovirus Not Detected (NotDetected); Influenza A, PCR Not Detected (NotDetected); Influenza AH1, 2009 Not Detected (NotDetected); Influenza AH1, PCR Not Detected (NotDetected); Influenza AH3,PCR Not Detected (NotDetected); Influenza B, PCR Not Detected (NotDetected); Mycoplasma Pneumoniae, PCR Not Detected (NotDetected); Parainfluenza 1, PCR Not Detected (NotDetected); Parainfluenza 2, PCR Not Detected (NotDetected); Parainfluenza 3, PCR Not Detected (NotDetected); Parainfluenza 4, PCR Not Detected (NotDetected); Respiratory Syncytial Virus Not Detected (NotDetected); Rhinovirus/Enterovirus Not Detected (NotDetected)
[2021-09-12 17:09] LABS: Coronavirus 19, PCR Detected (NotDetected)
== END 2021-09-12 11:11 | disposition home or self-care (01) ==
PROVIDERS: Emergency Provider Nurse Practitioner; PCP Family Medicine
DX: J06.9 Acute upper respiratory infection, unspecified (principal); U07.1 COVID-19; J02.9 Acute pharyngitis, unspecified
CPT/HCPCS: 87430; 87581; 87632; 87798; 99212; C9803; G0463; U0003; U0005

== ENCOUNTER → 2021-11-01 16:30 | Outpatient (CLI) | payer OTHER, SELFPAY ==
--- NOTE | 2021-11-01 16:31 | MR_ITS ---
PROCEDURE INFORMATION: Exam: MR Left Lower Extremity Joint Without Contrast; Ankle Exam date and time: 11/01/2021 4:33 PM Age: 36 years old Clinical indication: Pain; Ankle; Left; Prior surgery; Surgery date: 6+ months; Additional info: Chonic left ankle pain. History 2 ankle surgeries in apr 29 and jan 27. Ankle popped 4 times 2 months ago. Twisted ankle 2 days ago. Posterior and medial ankle pain. Ankle swelling. TECHNIQUE: Imaging protocol: Magnetic resonance imaging of the Left lower extremity without contrast. Exam focused on the ankle. COMPARISON: MR ANKLE LT WO/W CON 12/04/2019 2:39 PM FINDINGS: Bones/joints: No acute fracture. No dislocation. Postsurgical changes of medial and lateral malleoli. Fluid: No significant joint effusion. LIGAMENTS: Distal tibiofibular syndesmosis: Intact. Anterior talofibular ligament: Intact. Posterior talofibular ligament: Intact. Calcaneofibular ligament: Intact. Deltoid ligament complex: Intact. TENDONS: Flexor tendons of foot: Intact. Tibialis posterior tendon: Intact. Peroneal tendons: Intact. Extensor tendons of foot: Intact. Tibialis anterior tendon: Intact. Achilles tendon: Intact. Tarsal canal (Sinus tarsi): Unremarkable. Tarsal tunnel: Unremarkable. Muscles: Unremarkable. Soft tissues: Unremarkable. Plantar fascia: Intact. IMPRESSION: No acute findings.
== END ==
PROVIDERS: PCP Family Medicine; Visit Provider Podiatrist
DX: M25.572 Pain in left ankle and joints of left foot (principal); M76.822 Posterior tibial tendinitis, left leg; S96.012A Strain of muscle and tendon of long flexor muscle of toe at ankle and foot level, left foot, initial encounter
CPT/HCPCS: 73721

== ENCOUNTER 2024-07-07 14:09 | Outpatient (CLI) | payer OTHER, SELFPAY ==
--- NOTE | 2024-07-07 14:11 | XR_ITS ---
PROCEDURE INFORMATION: Exam: XR Left Foot Complete; Alignment Exam date and time: 07/07/2024 3:42 PM Age: 38 years old Clinical indication: Pain; Foot; Left; Additional info: Left foot pain TECHNIQUE: Imaging protocol: Radiologic exam of the left foot. Views: 3 or more views. COMPARISON: CR XR FOOT WT BEARING LT 3V 09/07/2021 4:43 PM FINDINGS: Bones/joints: Bunionectomy of the 1st metatarsal redemonstrated. Surgical anchors of the medial and lateral malleolus again noted. No acute bony abnormality. Soft tissues: Normal. IMPRESSION: Stable left foot with no acute abnormality.
== END 2024-07-07 23:59 | disposition home or self-care (01) ==
LOC: RAD 14:11
PROVIDERS: PCP Family Medicine; Visit Provider Podiatrist
DX: M79.672 Pain in left foot (principal)
CPT/HCPCS: 73630